=== PATIENT | male | born 1970 | race Caucasian/White ===

== ENCOUNTER 2018-12-18 11:54 | Inpatient (IN) | payer MEDICAID, OTHER ==
[~2018-12-18] VITALS: Ht 195.6 cm; Wt 101.3 kg
[~2018-12-18 11:54] MED LIST: DULO20CA30 PO; OLAN10TA3 PO
[2018-12-18] MEDS ORDERED: SODIUM CHLORIDE 0.9% 1,000 ML IV ONE (12:15)
[2018-12-18] MEDS ORDERED: METH10 PO (12:29)
[2018-12-18] MEDS ORDERED: SUCR1TAB PO (12:29)
[2018-12-18] MEDS ORDERED: DIVA500T52 PO (12:29)
[2018-12-18] MEDS ORDERED: PANT40TA25 PO (12:29)
[2018-12-18 12:41] LABS: BASOPHILS % (AUTO) 0.4 % (0.0-2.0); EOSINOPHILS % (AUTO) 3.9 % (1.0-6.0); HEMATOCRIT 33.4 % (41-53); HEMOGLOBIN 11.1 g/dL (13.5-17.5); LYMPHOCYTES # (AUTO) 2.2 K/uL (1.0-4.8); MEAN CORPUSCULAR HEMOGLOBIN 29.8 pg (26.0-34.0); MEAN CORPUSCULAR HGB CONC 33.2 G/dL (31.0-37.0); MEAN CORPUSCULAR VOLUME 90 fL (80-100); MONOCYTES # (AUTO) 0.8 K/uL (0.1-1.0); MONOCYTES % (AUTO) 14.6 % (2.0-9.0); NEUTROPHILS # (AUTO) 2.4 K/uL (1.8-7.7); NEUTROPHILS % (AUTO) 42.1 % (40.0-70.0); PLATELET COUNT (AUTO) 220 K/uL (150-450); RED BLOOD CELL COUNT(AUTO) 3.73 MIL/uL (4.50-5.90); RED CELL DISTRIBUTION WIDTH 14.9 % (11.5-14.5)
[2018-12-18 12:51] LABS: ANION GAP 5 mmol/L (8-16); CALCIUM, TOTAL 8.6 mg/dL (8.8-10.5); CARBON DIOXIDE 29 mmol/L (22-29); CHLORIDE 105 mmol/L (98-107); CREATININE 0.91 mg/dL (0.60-1.30); GLOMERULAR FILTR. RATE CALC > 60 mL/min (>60); GLUCOSE,RANDOM 88 mg/dL (70-110); POTASSIUM 3.8 mmol/L (3.5-5.1); SODIUM SERUM 139 mmol/L (136-145); UREA NITROGEN, BLOOD 20 mg/dL (7-18)
[2018-12-18 13:03] LABS: AMPHET/METH SCREEN,URINE NEGATIVE (NEGATIVE); BARBITURATE SCREEN, URINE NEGATIVE (NEGATIVE); BENZODIAZEPINES SCREEN,URINE NEGATIVE (NEGATIVE); CANNABINOID SCREEN,URINE NEGATIVE (NEGATIVE); COCAINE SCREEN,URINE NEGATIVE (NEGATIVE); METHADONE SCREEN, URINE POSITIVE (NEGATIVE); OPIATE SCREEN,URINE NEGATIVE (NEGATIVE)
[2018-12-18 13:04] LABS: PHENCYCLIDINE SCREEN,URINE NEGATIVE (NEGATIVE)
[2018-12-18] MEDS ORDERED: NALOXONE HCL 1 MG/ML 2 ML SYG IVP ONE (13:15)
[2018-12-18 13:18] LABS: ALANINE AMINOTRANSFERASE 49 U/L (12-78); ALKALINE PHOSPHATASE 63 U/L (46-116); ASPARTATE AMINOTRANSFERASE 62 U/L (15-37); BILIRUBIN,TOTAL 0.2 mg/dL (0.1-1.0); TOTAL PROTEIN, SERUM 6.7 g/dL (6.4-8.2)
[2018-12-18 13:19] LABS: ACETAMINOPHEN < 2 mcg/mL (10-30)
[2018-12-18 13:32] LABS: SALICYLATE 1.2 mg/dL (2.8-20.0)
[2018-12-18 13:51] LABS: VALPROIC ACID 35 mcg/mL (50-100)
[2018-12-18] MEDS ORDERED: ACETAMINOPHEN 325 MG TABLET PO PRN (19:00)
[2018-12-18] MEDS ORDERED: ONDANSETRON HCL 4 MG/2 ML VIAL IVP PRN ×2 (19:00→20:30)
[2018-12-18] MEDS ORDERED: 0.9% SODIUM CHLORIDE 10 ML SYRINGE IVP PRN (19:00)
[2018-12-18 20:26] VITALS: BP 116/60
[2018-12-18] MEDS ORDERED: MAGNESIUM HYDROXIDE SUSPENSION 30 ML UDCUP PO PRN (20:30)
[2018-12-18] MEDS ORDERED: MAGNESIUM SULFATE 2 GM, MVI, ADULT NO.1 WITH VIT K 10 ML, THIAMINE HCL 100 MG, FOLIC AC... IV ONE ×5 (20:30)
[2018-12-18] MEDS ORDERED: ZOLPIDEM TARTRATE 5 MG TABLET PO PRN (20:30)
[2018-12-18] MEDS ORDERED: BISACODYL 10 MG RECTAL RECTAL SUPPOSITORY PR PRN (20:30)
[2018-12-18] MEDS: DOCUSATE SODIUM 100 MG CAPSULE PO SCH (23:41)
[2018-12-18] MEDS: HEPARIN SODIUM,PORCINE 5,000 UNITS/ML VIAL SQ SCH (23:41)
[2018-12-19 00:05] VITALS: BP 122/70
[2018-12-19 05:00] VITALS: BP 128/83
[2018-12-19] MEDS ORDERED: PNEUMOCOCCAL VACCINE POLYVALENT 0.5 ML VIAL [PPSV23] IM ONE (06:30)
[2018-12-19 06:46] LABS: BASOPHILS % (AUTO) 0.6 % (0.0-2.0); EOSINOPHILS % (AUTO) 4.4 % (1.0-6.0); HEMATOCRIT 34.2 % (41-53); HEMOGLOBIN 11.6 g/dL (13.5-17.5); LYMPHOCYTES # (AUTO) 1.6 K/uL (1.0-4.8); LYMPHOCYTES % (AUTO) 43.4 % (22.0-44.0); MEAN CORPUSCULAR HEMOGLOBIN 30.2 pg (26.0-34.0); MEAN CORPUSCULAR HGB CONC 33.9 G/dL (31.0-37.0); MEAN CORPUSCULAR VOLUME 89 fL (80-100); MONOCYTES # (AUTO) 0.6 K/uL (0.1-1.0); MONOCYTES % (AUTO) 15.8 % (2.0-9.0); NEUTROPHILS # (AUTO) 1.4 K/uL (1.8-7.7); NEUTROPHILS % (AUTO) 35.8 % (40.0-70.0); PLATELET COUNT (AUTO) 225 K/uL (150-450); RED BLOOD CELL COUNT(AUTO) 3.84 MIL/uL (4.50-5.90); RED CELL DISTRIBUTION WIDTH 15.1 % (11.5-14.5)
[2018-12-19 07:03] LABS: ALANINE AMINOTRANSFERASE 51 U/L (12-78); ALBUMIN 2.9 g/dL (3.4-5.0); ALKALINE PHOSPHATASE 59 U/L (46-116); ANION GAP 5 mmol/L (8-16); ASPARTATE AMINOTRANSFERASE 49 U/L (15-37); BILIRUBIN,TOTAL 0.2 mg/dL (0.1-1.0); CALCIUM, TOTAL 8.9 mg/dL (8.8-10.5); CARBON DIOXIDE 32 mmol/L (22-29); CHLORIDE 104 mmol/L (98-107); CREATININE 0.93 mg/dL (0.60-1.30); GLOMERULAR FILTR. RATE CALC > 60 mL/min (>60); GLUCOSE,RANDOM 98 mg/dL (70-110); POTASSIUM 4.3 mmol/L (3.5-5.1); SODIUM SERUM 141 mmol/L (136-145); TOTAL PROTEIN, SERUM 6.7 g/dL (6.4-8.2); UREA NITROGEN, BLOOD 16 mg/dL (7-18)
[2018-12-19] MEDS: LORazepam 1 MG TABLET PO PRN ×3 (07:14→23:14)
[2018-12-19 07:55] VITALS: BP 127/75
[2018-12-19] MEDS: HEPARIN SODIUM,PORCINE 5,000 UNITS/ML VIAL SQ SCH ×3 (08:00→23:14)
[2018-12-19] MEDS: DOCUSATE SODIUM 100 MG CAPSULE PO SCH ×2 (09:00→20:44)
[2018-12-19] MEDS ORDERED: METHADONE HCL 10 MG TABLET PO SCH (09:00)
[2018-12-19] MEDS: PANTOPRAZOLE SODIUM 40 MG DR TABLET PO SCH (09:16)
[2018-12-19] MEDS: METHADONE HCL 10 MG TABLET PO SCH (10:13)
[2018-12-19 11:57] VITALS: BP 108/75
[2018-12-19 20:04] VITALS: BP 109/67
[2018-12-19] MEDS: ACETAMINOPHEN 325 MG TABLET PO PRN (21:39)
[2018-12-19] MEDS: CALCIUM CARBONATE 500 MG CHEWABLE TABLET CHEW PRN (23:14)
[2018-12-20 00:14] VITALS: BP 115/62
[2018-12-20 04:21] VITALS: BP 114/73
[2018-12-20 06:41] LABS: BASOPHILS % (AUTO) 0.2 % (0.0-2.0); EOSINOPHILS % (AUTO) 1.6 % (1.0-6.0); LYMPHOCYTES # (AUTO) 1.8 K/uL (1.0-4.8); LYMPHOCYTES % (AUTO) 18.8 % (22.0-44.0); MEAN CORPUSCULAR HEMOGLOBIN 29.1 pg (26.0-34.0); MEAN CORPUSCULAR HGB CONC 32.4 G/dL (31.0-37.0); MEAN CORPUSCULAR VOLUME 90 fL (80-100); MONOCYTES # (AUTO) 0.9 K/uL (0.1-1.0); MONOCYTES % (AUTO) 9.2 % (2.0-9.0); NEUTROPHILS # (AUTO) 6.9 K/uL (1.8-7.7); NEUTROPHILS % (AUTO) 70.2 % (40.0-70.0); PLATELET COUNT (AUTO) 248 K/uL (150-450); RED BLOOD CELL COUNT(AUTO) 4.11 MIL/uL (4.50-5.90); RED CELL DISTRIBUTION WIDTH 14.5 % (11.5-14.5)
[2018-12-20 06:46] LABS: ANION GAP 7 mmol/L (8-16); CALCIUM, TOTAL 9.5 mg/dL (8.8-10.5); CARBON DIOXIDE 33 mmol/L (22-29); CHLORIDE 100 mmol/L (98-107); CREATININE 0.92 mg/dL (0.60-1.30); GLOMERULAR FILTR. RATE CALC > 60 mL/min (>60); GLUCOSE,RANDOM 88 mg/dL (70-110); POTASSIUM 4.8 mmol/L (3.5-5.1); SODIUM SERUM 140 mmol/L (136-145); UREA NITROGEN, BLOOD 19 mg/dL (7-18)
[2018-12-20] MEDS: LORazepam 1 MG TABLET PO PRN ×3 (07:44→23:25)
[2018-12-20 08:04] VITALS: BP 136/85
[2018-12-20] MEDS: DOCUSATE SODIUM 100 MG CAPSULE PO SCH ×2 (08:56→19:56)
[2018-12-20] MEDS: METHADONE HCL 10 MG TABLET PO SCH (08:56)
[2018-12-20] MEDS: PANTOPRAZOLE SODIUM 40 MG DR TABLET PO SCH (08:56)
[2018-12-20] MEDS: HEPARIN SODIUM,PORCINE 5,000 UNITS/ML VIAL SQ SCH ×3 (08:56→23:42)
[2018-12-20 11:40] VITALS: BP 119/83
[2018-12-20] MEDS: ACETAMINOPHEN 325 MG TABLET PO PRN (11:52)
[2018-12-20 16:00] VITALS: BP 128/85
[2018-12-20] MEDS ORDERED: OLANZapine 10 MG TABLET PO SCH (21:00)
[2018-12-20] MEDS: CALCIUM CARBONATE 500 MG CHEWABLE TABLET CHEW PRN (22:52)
[2018-12-20 22:54] VITALS: BP 135/86
[2018-12-21 04:15] VITALS: BP 112/78
[2018-12-21 07:49] VITALS: BP 147/91
[2018-12-21] MEDS: HEPARIN SODIUM,PORCINE 5,000 UNITS/ML VIAL SQ SCH (07:52)
[2018-12-21] MEDS: CALCIUM CARBONATE 500 MG CHEWABLE TABLET CHEW PRN (07:56)
[2018-12-21] MEDS: METHADONE HCL 10 MG TABLET PO SCH (07:56)
[2018-12-21] MEDS: PANTOPRAZOLE SODIUM 40 MG DR TABLET PO SCH (07:56)
[2018-12-21] MEDS: LORazepam 1 MG TABLET PO PRN (07:57)
[2018-12-21] MEDS: DOCUSATE SODIUM 100 MG CAPSULE PO SCH (07:57)
[2018-12-21] MEDS ORDERED: METH10 PO (08:41)
== END 2018-12-21 09:45 | disposition home or self-care (01) | DRG 52 ==
LOC: EMS 11:55 → 4E 19:30 → 5S 19:38 → 4E 12-20 16:20
PROVIDERS: ADMIT Internal Medicine; ATTEND Internal Medicine
DX: G92 Toxic encephalopathy (principal); F11.20 Opioid dependence, uncomplicated; K21.9 Gastro-esophageal reflux disease without esophagitis; F17.210 Nicotine dependence, cigarettes, uncomplicated; F31.5 Bipolar disorder, current episode depressed, severe, with psychotic features; T40.3X5A Adverse effect of methadone, initial encounter; Z88.2 Allergy status to sulfonamides; Z79.899 Other long term (current) drug therapy; Y92.89 Other specified places as the place of occurrence of the external cause; Z78.1 Physical restraint status
CPT/HCPCS: 51702; 70450; 93005; 96365; 96375; G0378; G0480; G0481; J1644; J2310; J2405; J3411; J3475; J3490; J7030

== ENCOUNTER 2019-01-06 13:49 | Inpatient (IN) | payer MEDICAID, OTHER ==
[~2019-01-06] VITALS: Ht 188 cm; Wt 95.7 kg
[~2019-01-06 13:49] MED LIST changes: +DIVA500T52 PO; -DULO20CA30 PO; +METH10 PO; +PANT40TA25 PO; +SUCR1TAB PO
[2019-01-06 15:44] LABS: EOSINOPHILS % (AUTO) 3.7 % (1.0-6.0); HEMATOCRIT 33.9 % (41-53); HEMOGLOBIN 11.1 g/dL (13.5-17.5); LYMPHOCYTES # (AUTO) 1.7 K/uL (1.0-4.8); LYMPHOCYTES % (AUTO) 35.9 % (22.0-44.0); MEAN CORPUSCULAR HEMOGLOBIN 29.2 pg (26.0-34.0); MEAN CORPUSCULAR HGB CONC 32.6 G/dL (31.0-37.0); MEAN CORPUSCULAR VOLUME 90 fL (80-100); MONOCYTES # (AUTO) 0.6 K/uL (0.1-1.0); MONOCYTES % (AUTO) 12.6 % (2.0-9.0); NEUTROPHILS # (AUTO) 2.2 K/uL (1.8-7.7); NEUTROPHILS % (AUTO) 46.8 % (40.0-70.0); PLATELET COUNT (AUTO) 308 K/uL (150-450); RED BLOOD CELL COUNT(AUTO) 3.79 MIL/uL (4.50-5.90); RED CELL DISTRIBUTION WIDTH 14.9 % (11.5-14.5)
[2019-01-06 15:50] LABS: PROTHROMBIN TIME 10.7 SEC (9.4-11.6)
[2019-01-06 15:55] LABS: ANION GAP 10 mmol/L (8-16); CALCIUM, TOTAL 9.3 mg/dL (8.8-10.5); CARBON DIOXIDE 29 mmol/L (22-29); CHLORIDE 101 mmol/L (98-107); CREATININE 0.91 mg/dL (0.60-1.30); GLOMERULAR FILTR. RATE CALC > 60 mL/min (>60); GLUCOSE,RANDOM 78 mg/dL (70-110); POTASSIUM 3.1 mmol/L (3.5-5.1); SODIUM SERUM 140 mmol/L (136-145); UREA NITROGEN, BLOOD 12 mg/dL (7-18)
[2019-01-06 15:56] LABS: SALICYLATE < 2.8 mg/dL (2.8-20.0)
[2019-01-06 16:01] LABS: ALANINE AMINOTRANSFERASE 29 U/L (12-78); ALKALINE PHOSPHATASE 55 U/L (46-116); ASPARTATE AMINOTRANSFERASE 25 U/L (15-37); BILIRUBIN,TOTAL 0.5 mg/dL (0.1-1.0); LIPASE 31 U/L (73-393); TOTAL PROTEIN, SERUM 6.8 g/dL (6.4-8.2); VALPROIC ACID 5 mcg/mL (50-100)
[2019-01-06 16:03] LABS: ACETAMINOPHEN < 2 mcg/mL (10-30)
[2019-01-06] MEDS ORDERED: POTASSIUM CHLORIDE 10% 40 MEQ/30 ML LIQUID UDCUP PO ONE (16:30)
[2019-01-07 03:00] LABS: APPEARANCE,URINE CLEAR (CLEAR); BILIRUBIN,URINE NEGATIVE (NEGATIVE); GLUCOSE, URINE (UA) NEGATIVE (NEGATIVE); KETONES,URINE 15 mg/dL (NEGATIVE); LEUKOCYTE ESTERASE ,URINE NEGATIVE (NEGATIVE); NITRATE,URINE NEGATIVE (NEGATIVE); OCCULT BLOOD,URINE NEGATIVE (NEGATIVE); PROTEIN,URINE NEGATIVE (NEGATIVE)
[2019-01-07 03:05] LABS: AMPHET/METH SCREEN,URINE POSITIVE (NEGATIVE); BARBITURATE SCREEN, URINE NEGATIVE (NEGATIVE); BENZODIAZEPINES SCREEN,URINE POSITIVE (NEGATIVE); CANNABINOID SCREEN,URINE NEGATIVE (NEGATIVE); COCAINE SCREEN,URINE NEGATIVE (NEGATIVE); METHADONE SCREEN, URINE POSITIVE (NEGATIVE); OPIATE SCREEN,URINE NEGATIVE (NEGATIVE)
[2019-01-07 03:06] LABS: BACTERIA,URINE None Seen /HPF (None Seen); RBC,URINE None Seen /HPF (0-2); SQUAMOUS EPITHELIAL CELL,UR Rare /LPF (None Seen); WBC,URINE 0-2 /HPF (0-5)
[2019-01-07 03:07] LABS: PHENCYCLIDINE SCREEN,URINE NEGATIVE (NEGATIVE)
[2019-01-07] MEDS ORDERED: HALOPERIDOL 5 MG TABLET PO PRN (03:30)
[2019-01-07 03:44] VITALS: BP 111/52
[2019-01-07 08:05] VITALS: BP 100/57
[2019-01-07] MEDS ORDERED: MAGNESIUM HYDROXIDE SUSPENSION 30 ML UDCUP PO PRN (10:00)
[2019-01-07] MEDS ORDERED: ACETAMINOPHEN 325 MG TABLET PO PRN (10:00)
[2019-01-07] MEDS ORDERED: DOCUSATE SODIUM 100 MG CAPSULE PO PRN (10:00)
[2019-01-07] MEDS ORDERED: ONDANSETRON HCL 4 MG TABLET PO PRN (10:00)
[2019-01-07] MEDS ORDERED: NICOTINE 14 MG/24 HOUR PATCH TD PRN (10:00)
[2019-01-07] MEDS ORDERED: GuaiFENesin/D-METHORPHAN [SUGAR-FREE] 200-20MG/10 ML SYRUP UDCUP PO PRN (10:00)
[2019-01-07] MEDS ORDERED: LOPERAMIDE HCL 2 MG CAPSULE PO PRN (10:00)
[2019-01-07] MEDS ORDERED: CloNIDine HCL 0.1 MG TABLET PO PRN (10:00)
[2019-01-07] MEDS ORDERED: PETROLATUM,WHITE 28 GM JELLY TP PRN (10:00)
[2019-01-07] MEDS ORDERED: ALBUTEROL SULFATE HFA 90 MCG/PUFF 8 GM INHALER IH PRN (10:00)
[2019-01-07] MEDS: SUCRALFATE 1 GM TABLET PO SCH (16:39)
[2019-01-07 17:19] VITALS: BP 107/60
[2019-01-07] MEDS: LORazepam 2 MG TABLET PO PRN (17:42)
[2019-01-07] MEDS: OLANZapine 10 MG TABLET PO SCH (21:13)
[2019-01-07] MEDS: DIVALPROEX SODIUM 500 MG ER TABLET PO SCH (21:13)
[2019-01-08 08:30] VITALS: BP 96/52
[2019-01-08 09:30] VITALS: BP 151/103
[2019-01-08] MEDS: SUCRALFATE 1 GM TABLET PO SCH ×2 (09:34→17:38)
[2019-01-08] MEDS: METHADONE HCL 10 MG TABLET PO SCH (09:35)
[2019-01-08] MEDS: LORazepam 2 MG TABLET PO PRN ×2 (11:07→19:06)
[2019-01-08 17:07] VITALS: BP 93/54
[2019-01-08 19:05] VITALS: BP 109/72
[2019-01-08] MEDS: DIVALPROEX SODIUM 500 MG ER TABLET PO SCH (21:05)
[2019-01-08] MEDS: OLANZapine 10 MG TABLET PO SCH (21:05)
[2019-01-09 08:00] VITALS: BP 100/68
[2019-01-09] MEDS: METHADONE HCL 10 MG TABLET PO SCH (09:33)
[2019-01-09] MEDS: SUCRALFATE 1 GM TABLET PO SCH ×2 (09:34→16:42)
[2019-01-09] MEDS: LORazepam 2 MG TABLET PO PRN ×3 (10:15→22:14)
[2019-01-09 16:20] VITALS: BP 118/73
[2019-01-09] MEDS: DIVALPROEX SODIUM 500 MG ER TABLET PO SCH (21:27)
[2019-01-09] MEDS: OLANZapine 10 MG TABLET PO SCH (21:27)
[2019-01-10 00:40] VITALS: BP 100/79
[2019-01-10] MEDS: ZOLPIDEM TARTRATE 10 MG TABLET PO PRN (01:56)
[2019-01-10] MEDS: MAG HYDROX/AL HYDROX/SIMETH ES 30 ML SUSPENSION UDCUP PO PRN (01:56)
[2019-01-10] MEDS: LORazepam 2 MG TABLET PO PRN ×3 (08:44→20:31)
[2019-01-10 09:15] VITALS: BP 120/74
[2019-01-10] MEDS: SUCRALFATE 1 GM TABLET PO SCH ×2 (10:24→16:43)
[2019-01-10] MEDS: METHADONE HCL 10 MG TABLET PO SCH (10:24)
[2019-01-10 18:20] VITALS: BP 111/65
[2019-01-10] MEDS: DIVALPROEX SODIUM 500 MG ER TABLET PO SCH (20:31)
[2019-01-10] MEDS: OLANZapine 10 MG TABLET PO SCH (20:31)
[2019-01-11 00:20] VITALS: BP 120/78
[2019-01-11] MEDS: IBUPROFEN 400 MG TABLET PO PRN (00:23)
[2019-01-11] MEDS: MAG HYDROX/AL HYDROX/SIMETH ES 30 ML SUSPENSION UDCUP PO PRN (00:23)
[2019-01-11 03:07] VITALS: BP 118/91
[2019-01-11] MEDS: ZOLPIDEM TARTRATE 10 MG TABLET PO PRN ×2 (03:10→20:40)
[2019-01-11] MEDS: LORazepam 2 MG TABLET PO PRN ×3 (03:10→16:09)
[2019-01-11 08:00] VITALS: BP 90/60
[2019-01-11] MEDS: SUCRALFATE 1 GM TABLET PO SCH ×2 (08:55→16:10)
[2019-01-11] MEDS: METHADONE HCL 10 MG TABLET PO SCH (08:56)
[2019-01-11] MEDS ORDERED: LORazepam 2 MG/ML VIAL IM ONE (16:30)
[2019-01-11] MEDS ORDERED: HALOPERIDOL LACTATE 5 MG/ML VIAL IM ONE (16:30)
[2019-01-11] MEDS ORDERED: DiphenhydrAMINE HCL 50 MG/ML VIAL IM ONE (16:30)
[2019-01-11 16:41] VITALS: BP 117/80
[2019-01-11] MEDS: DIVALPROEX SODIUM 500 MG ER TABLET PO SCH (20:11)
[2019-01-11] MEDS: OLANZapine 10 MG TABLET PO SCH (20:12)
[2019-01-12 08:12] VITALS: BP 127/80
[2019-01-12] MEDS: SUCRALFATE 1 GM TABLET PO SCH ×2 (09:44→16:06)
[2019-01-12] MEDS: METHADONE HCL 10 MG TABLET PO SCH (09:45)
[2019-01-12] MEDS: LORazepam 2 MG TABLET PO PRN ×2 (13:41→21:02)
[2019-01-12] MEDS: OLANZapine 10 MG TABLET PO SCH (21:02)
[2019-01-12] MEDS: DIVALPROEX SODIUM 500 MG ER TABLET PO SCH (21:02)
[2019-01-13] MEDS: METHADONE HCL 10 MG TABLET PO SCH (07:41)
[2019-01-13] MEDS: SUCRALFATE 1 GM TABLET PO SCH ×2 (07:41→16:06)
[2019-01-13 08:01] VITALS: BP 105/83
[2019-01-13] MEDS: LORazepam 2 MG TABLET PO PRN ×3 (10:15→21:22)
[2019-01-13] MEDS: MAG HYDROX/AL HYDROX/SIMETH ES 30 ML SUSPENSION UDCUP PO PRN (16:00)
[2019-01-13 20:03] VITALS: BP 117/69
[2019-01-13] MEDS: DIVALPROEX SODIUM 500 MG ER TABLET PO SCH (20:57)
[2019-01-13] MEDS: OLANZapine 10 MG TABLET PO SCH (20:57)
[2019-01-14 08:00] VITALS: BP 105/75
[2019-01-14] MEDS: METHADONE HCL 10 MG TABLET PO SCH (08:31)
[2019-01-14] MEDS: SUCRALFATE 1 GM TABLET PO SCH ×2 (08:31→16:20)
[2019-01-14] MEDS: LORazepam 2 MG TABLET PO PRN ×2 (10:37→16:20)
[2019-01-14 16:24] VITALS: BP 114/60
[2019-01-14] MEDS: DIVALPROEX SODIUM 500 MG ER TABLET PO SCH (19:55)
[2019-01-14] MEDS: OLANZapine 10 MG TABLET PO SCH (19:55)
[2019-01-15 01:15] VITALS: BP 112/80
[2019-01-15] MEDS: LORazepam 2 MG TABLET PO PRN ×5 (01:20→23:53)
[2019-01-15] MEDS: ZOLPIDEM TARTRATE 10 MG TABLET PO PRN ×2 (01:20→23:53)
[2019-01-15 08:00] VITALS: BP 121/68
[2019-01-15] MEDS: SUCRALFATE 1 GM TABLET PO SCH ×2 (08:12→16:11)
[2019-01-15] MEDS: METHADONE HCL 10 MG TABLET PO SCH (08:14)
[2019-01-15 16:00] VITALS: BP 106/70
[2019-01-15] MEDS: OLANZapine 10 MG TABLET PO SCH (20:45)
[2019-01-15] MEDS: DIVALPROEX SODIUM 500 MG ER TABLET PO SCH (20:45)
[2019-01-16 08:30] VITALS: BP 107/62
[2019-01-16] MEDS: METHADONE HCL 10 MG TABLET PO SCH (09:35)
[2019-01-16] MEDS: LORazepam 2 MG TABLET PO PRN (09:35)
[2019-01-16] MEDS: SUCRALFATE 1 GM TABLET PO SCH ×2 (09:35→21:03)
[2019-01-16 19:28] VITALS: BP 129/90
[2019-01-16] MEDS: DIVALPROEX SODIUM 500 MG ER TABLET PO SCH (21:03)
[2019-01-16] MEDS: ZOLPIDEM TARTRATE 10 MG TABLET PO PRN (21:03)
[2019-01-16] MEDS: OLANZapine 10 MG TABLET PO SCH (21:03)
[2019-01-17] MEDS: LEVOFLOXACIN 500 MG TABLET PO SCH (09:00)
[2019-01-17] MEDS: METHADONE HCL 10 MG TABLET PO SCH (09:31)
[2019-01-17] MEDS: SUCRALFATE 1 GM TABLET PO SCH ×2 (09:31→16:27)
[2019-01-17] MEDS: LORazepam 2 MG TABLET PO PRN ×3 (09:31→20:17)
[2019-01-17 12:32] VITALS: BP 134/76
[2019-01-17] MEDS: IBUPROFEN 400 MG TABLET PO PRN (16:27)
[2019-01-17 16:28] VITALS: BP 102/62
[2019-01-17] MEDS: OLANZapine 10 MG TABLET PO SCH (20:10)
[2019-01-17] MEDS: DIVALPROEX SODIUM 500 MG ER TABLET PO SCH (20:10)
[2019-01-18] MEDS: SUCRALFATE 1 GM TABLET PO SCH ×2 (08:37→16:37)
[2019-01-18] MEDS: LEVOFLOXACIN 500 MG TABLET PO SCH (08:37)
[2019-01-18] MEDS: LORazepam 2 MG TABLET PO PRN ×2 (08:37→16:37)
[2019-01-18] MEDS: METHADONE HCL 10 MG TABLET PO SCH (08:37)
[2019-01-18 08:56] VITALS: BP 106/69
[2019-01-18 17:04] VITALS: BP 110/76
[2019-01-18] MEDS: OLANZapine 10 MG TABLET PO SCH (20:01)
[2019-01-18] MEDS: DIVALPROEX SODIUM 500 MG ER TABLET PO SCH (20:01)
[2019-01-18] MEDS: ZOLPIDEM TARTRATE 10 MG TABLET PO PRN (23:40)
[2019-01-19] MEDS: SUCRALFATE 1 GM TABLET PO SCH ×2 (08:32→16:40)
[2019-01-19] MEDS: LORazepam 2 MG TABLET PO PRN ×3 (08:32→21:58)
[2019-01-19] MEDS: METHADONE HCL 10 MG TABLET PO SCH (08:32)
[2019-01-19] MEDS: LEVOFLOXACIN 500 MG TABLET PO SCH (08:32)
[2019-01-19 09:12] VITALS: BP 134/87
[2019-01-19 16:30] VITALS: BP 124/78
[2019-01-19] MEDS: OLANZapine 10 MG TABLET PO SCH (20:24)
[2019-01-19] MEDS: DIVALPROEX SODIUM 500 MG ER TABLET PO SCH (20:24)
[2019-01-20 00:06] VITALS: BP 107/73
[2019-01-20] MEDS: MAG HYDROX/AL HYDROX/SIMETH ES 30 ML SUSPENSION UDCUP PO PRN ×2 (00:10→16:14)
[2019-01-20] MEDS: SUCRALFATE 1 GM TABLET PO SCH ×2 (08:17→16:12)
[2019-01-20] MEDS: METHADONE HCL 10 MG TABLET PO SCH (08:18)
[2019-01-20] MEDS: LORazepam 2 MG TABLET PO PRN ×2 (08:18→16:14)
[2019-01-20] MEDS: LEVOFLOXACIN 500 MG TABLET PO SCH (08:18)
[2019-01-20 09:51] VITALS: BP 108/79
[2019-01-20] MEDS ORDERED: OLAN10TA3 PO (12:31)
[2019-01-20] MEDS ORDERED: LEVO500 PO (12:45)
[2019-01-20 16:28] VITALS: BP 120/81
== END 2019-01-20 18:50 | disposition home or self-care (01) | DRG 750 ==
LOC: EMS 13:50 → 3EI 01-07 02:58 → 3EC 01-11 16:54 → 3EI 01-19 08:24
PROVIDERS: ADMIT Psychiatry & Neurology Child & Adolescent Psychiatry; ATTEND Psychiatry & Neurology Child & Adolescent Psychiatry
DX: F25.1 Schizoaffective disorder, depressive type (principal); R45.851 Suicidal ideations; Z59.0 Homelessness; D64.9 Anemia, unspecified; E87.6 Hypokalemia; F11.90 Opioid use, unspecified, uncomplicated; F17.200 Nicotine dependence, unspecified, uncomplicated; G89.4 Chronic pain syndrome; F15.10 Other stimulant abuse, uncomplicated; I10 Essential (primary) hypertension; F41.9 Anxiety disorder, unspecified; L02.92 Furuncle, unspecified; I73.9 Peripheral vascular disease, unspecified; K21.9 Gastro-esophageal reflux disease without esophagitis; Z59.5 Extreme poverty; Z79.899 Other long term (current) drug therapy; Z95.0 Presence of cardiac pacemaker; Z91.5 Personal history of self-harm; Z71.6 Tobacco abuse counseling; Z88.2 Allergy status to sulfonamides
CPT/HCPCS: 84132; 87081; G0480; G0481; J1200; J1630; J2060

== ENCOUNTER 2019-05-28 15:11 | Inpatient (IN) | payer MEDICAID, OTHER ==
[~2019-05-28] VITALS: Ht 188 cm; Wt 99.8 kg
[~2019-05-28 15:11] MED LIST changes: +LEVO500 PO; -METH10 PO; -PANT40TA25 PO
[2019-05-28 17:46] LABS: BASOPHILS % (AUTO) 0.9 % (0.0-2.0); HEMATOCRIT 40.9 % (41-53); HEMOGLOBIN 13.8 g/dL (13.5-17.5); LYMPHOCYTES # (AUTO) 2.5 K/uL (1.0-4.8); MEAN CORPUSCULAR HEMOGLOBIN 29.6 pg (26.0-34.0); MEAN CORPUSCULAR HGB CONC 33.7 G/dL (31.0-37.0); MEAN CORPUSCULAR VOLUME 88 fL (80-100); MONOCYTES # (AUTO) 0.6 K/uL (0.1-1.0); MONOCYTES % (AUTO) 8.5 % (2.0-9.0); NEUTROPHILS # (AUTO) 4.2 K/uL (1.8-7.7); NEUTROPHILS % (AUTO) 55.6 % (40.0-70.0); PLATELET COUNT (AUTO) 301 K/uL (150-450); RED BLOOD CELL COUNT(AUTO) 4.66 MIL/uL (4.50-5.90); RED CELL DISTRIBUTION WIDTH 15.4 % (11.5-14.5)
[2019-05-28 17:53] LABS: ANION GAP 8 mmol/L (8-16); CALCIUM, TOTAL 9.2 mg/dL (8.8-10.5); CARBON DIOXIDE 29 mmol/L (22-29); CHLORIDE 101 mmol/L (98-107); CREATININE 0.81 mg/dL (0.60-1.30); GLOMERULAR FILTR. RATE CALC > 60 mL/min (>60); GLUCOSE,RANDOM 92 mg/dL (70-110); POTASSIUM 4.3 mmol/L (3.5-5.1); SODIUM SERUM 138 mmol/L (136-145)
[2019-05-28 17:59] LABS: ALANINE AMINOTRANSFERASE 28 U/L (12-78); ALBUMIN 3.8 g/dL (3.4-5.0); ALKALINE PHOSPHATASE 121 U/L (46-116); ASPARTATE AMINOTRANSFERASE 20 U/L (15-37); BILIRUBIN,TOTAL 0.4 mg/dL (0.1-1.0); TOTAL PROTEIN, SERUM 7.7 g/dL (6.4-8.2)
[2019-05-28 18:32] LABS: UREA NITROGEN, BLOOD 9 mg/dL (7-18)
[2019-05-28 18:33] LABS: AMPHET/METH SCREEN,URINE POSITIVE (NEGATIVE); BARBITURATE SCREEN, URINE NEGATIVE (NEGATIVE); BENZODIAZEPINES SCREEN,URINE NEGATIVE (NEGATIVE); CANNABINOID SCREEN,URINE NEGATIVE (NEGATIVE); COCAINE SCREEN,URINE NEGATIVE (NEGATIVE); METHADONE SCREEN, URINE POSITIVE (NEGATIVE); OPIATE SCREEN,URINE NEGATIVE (NEGATIVE)
[2019-05-28] MEDS ORDERED: LORazepam 2 MG TABLET PO ONE (18:45)
[2019-05-28 19:02] LABS: PHENCYCLIDINE SCREEN,URINE NEGATIVE (NEGATIVE)
[2019-05-28 20:47] LABS: VALPROIC ACID < 3 mcg/mL (50-100)
[2019-05-28] MEDS ORDERED: OLANZapine 5 MG TABLET PO ONE (22:45)
[2019-05-28] MEDS ORDERED: DIVALPROEX SODIUM 500 MG ER TABLET PO ONE (22:45)
[2019-05-29] MEDS: HALOPERIDOL 5 MG TABLET PO PRN ×2 (02:13→17:36)
[2019-05-29] MEDS: LORazepam 2 MG TABLET PO PRN ×2 (02:14→17:36)
[2019-05-29 04:15] VITALS: BP 132/92
[2019-05-29] MEDS ORDERED: INFLUENZA VIRUS VACCINE QVS 2019-20 (3YR+)/PF 60 MCG/0.5 ML SYRINGE IM ONE (04:45)
[2019-05-29 08:06] LABS: CHOL/HDL RATIO 1.8 (4.2-7.3)
[2019-05-29] MEDS ORDERED: ONDANSETRON HCL 4 MG TABLET PO PRN (14:15)
[2019-05-29] MEDS ORDERED: NICOTINE 14 MG/24 HOUR PATCH TD PRN (14:15)
[2019-05-29] MEDS ORDERED: DOCUSATE SODIUM 100 MG CAPSULE PO PRN (14:15)
[2019-05-29] MEDS ORDERED: CloNIDine HCL 0.1 MG TABLET PO PRN (14:15)
[2019-05-29] MEDS ORDERED: ALBUTEROL SULFATE HFA 90 MCG/PUFF 8 GM INHALER IH PRN (14:15)
[2019-05-29] MEDS ORDERED: LOPERAMIDE HCL 2 MG CAPSULE PO PRN (14:15)
[2019-05-29] MEDS ORDERED: ACETAMINOPHEN 325 MG TABLET PO PRN (14:15)
[2019-05-29] MEDS ORDERED: MAGNESIUM HYDROXIDE SUSPENSION 30 ML UDCUP PO PRN (14:15)
[2019-05-29] MEDS ORDERED: PETROLATUM,WHITE 28 GM JELLY TP PRN (14:15)
[2019-05-29] MEDS ORDERED: MAG HYDROX/AL HYDROX/SIMETH ES 30 ML SUSPENSION UDCUP PO PRN (14:15)
[2019-05-29] MEDS ORDERED: IBUPROFEN 400 MG TABLET PO PRN (14:15)
[2019-05-29] MEDS ORDERED: GuaiFENesin/D-METHORPHAN [SUGAR-FREE] 200-20MG/10 ML SYRUP UDCUP PO PRN (14:15)
[2019-05-29] MEDS: SUCRALFATE 1 GM TABLET PO SCH (17:12)
[2019-05-29 17:20] VITALS: BP 120/84
[2019-05-30] MEDS: HALOPERIDOL 5 MG TABLET PO PRN ×2 (01:37→10:43)
[2019-05-30] MEDS: LORazepam 2 MG TABLET PO PRN ×4 (01:37→21:16)
[2019-05-30 01:41] VITALS: BP 101/65
[2019-05-30 08:15] VITALS: BP 93/85
[2019-05-30 09:58] VITALS: BP 118/64
[2019-05-30] MEDS: SUCRALFATE 1 GM TABLET PO SCH ×2 (10:01→17:07)
[2019-05-30] MEDS: METHADONE HCL 10 MG TABLET PO SCH (10:01)
[2019-05-30 16:51] VITALS: BP 90/60
[2019-05-31 05:40] VITALS: BP 104/67
[2019-05-31 08:00] VITALS: BP 119/83
[2019-05-31] MEDS: SUCRALFATE 1 GM TABLET PO SCH ×2 (09:17→16:08)
[2019-05-31] MEDS: METHADONE HCL 10 MG TABLET PO SCH (09:17)
[2019-05-31] MEDS: LORazepam 2 MG TABLET PO PRN ×3 (09:22→19:00)
[2019-05-31 21:08] VITALS: BP 121/85
[2019-05-31] MEDS: HALOPERIDOL 5 MG TABLET PO PRN (22:10)
[2019-05-31] MEDS: ZOLPIDEM TARTRATE 10 MG TABLET PO PRN (22:10)
[2019-06-01] MEDS: LORazepam 2 MG TABLET PO PRN ×4 (00:15→16:54)
[2019-06-01 02:01] VITALS: BP 116/77
[2019-06-01] MEDS: HALOPERIDOL 5 MG TABLET PO PRN ×2 (04:46→11:57)
[2019-06-01] MEDS: SUCRALFATE 1 GM TABLET PO SCH ×2 (07:47→16:29)
[2019-06-01] MEDS: METHADONE HCL 10 MG TABLET PO SCH (07:47)
[2019-06-01] MEDS: BuPROPion HCL XL 150 MG ER TABLET PO SCH (13:40)
[2019-06-01 18:09] VITALS: BP 110/66
[2019-06-02 08:30] VITALS: BP 112/60
[2019-06-02] MEDS: METHADONE HCL 10 MG TABLET PO SCH (09:01)
[2019-06-02] MEDS: BuPROPion HCL XL 150 MG ER TABLET PO SCH (09:02)
[2019-06-02] MEDS: SUCRALFATE 1 GM TABLET PO SCH ×2 (09:02→16:17)
[2019-06-02] MEDS: LORazepam 2 MG TABLET PO PRN ×3 (09:08→22:12)
[2019-06-02] MEDS: HALOPERIDOL 5 MG TABLET PO PRN ×3 (12:15→22:12)
[2019-06-02 18:13] VITALS: BP 129/79
[2019-06-03] MEDS: SUCRALFATE 1 GM TABLET PO SCH ×2 (08:20→16:19)
[2019-06-03] MEDS: BuPROPion HCL XL 150 MG ER TABLET PO SCH (08:21)
[2019-06-03] MEDS: METHADONE HCL 10 MG TABLET PO SCH (08:21)
[2019-06-03] MEDS: LORazepam 2 MG TABLET PO PRN ×3 (08:25→18:10)
[2019-06-03 08:52] VITALS: BP 105/61
[2019-06-03 16:30] VITALS: BP 117/83
[2019-06-03] MEDS: HALOPERIDOL 5 MG TABLET PO PRN (18:10)
[2019-06-03] MEDS: ZOLPIDEM TARTRATE 10 MG TABLET PO PRN (22:41)
[2019-06-04 00:13] VITALS: BP 123/96
[2019-06-04] MEDS: LORazepam 2 MG TABLET PO PRN ×3 (01:04→21:45)
[2019-06-04] MEDS: HALOPERIDOL 5 MG TABLET PO PRN ×3 (01:05→21:46)
[2019-06-04] MEDS: SUCRALFATE 1 GM TABLET PO SCH ×2 (09:40→16:58)
[2019-06-04] MEDS: BuPROPion HCL XL 150 MG ER TABLET PO SCH (09:40)
[2019-06-04] MEDS: METHADONE HCL 10 MG TABLET PO SCH (09:41)
[2019-06-04 09:52] VITALS: BP 108/75
[2019-06-04 16:23] VITALS: BP 114/62
[2019-06-04] MEDS: OLANZapine 5 MG TABLET PO SCH (16:58)
[2019-06-04 21:44] VITALS: BP 110/65
[2019-06-05 09:04] VITALS: BP 104/69
[2019-06-05] MEDS: SUCRALFATE 1 GM TABLET PO SCH ×2 (11:10→16:03)
[2019-06-05] MEDS: BuPROPion HCL XL 150 MG ER TABLET PO SCH (11:11)
[2019-06-05] MEDS: OLANZapine 5 MG TABLET PO SCH ×2 (11:11→16:03)
[2019-06-05] MEDS: METHADONE HCL 10 MG TABLET PO SCH (11:11)
[2019-06-05] MEDS: HALOPERIDOL 5 MG TABLET PO PRN ×3 (11:11→23:07)
[2019-06-05] MEDS: LORazepam 2 MG TABLET PO PRN ×3 (11:11→23:07)
[2019-06-05 16:01] VITALS: BP 117/76
[2019-06-05 23:00] VITALS: BP 116/72
[2019-06-06] MEDS: METHADONE HCL 10 MG TABLET PO SCH (08:40)
[2019-06-06] MEDS: OLANZapine 5 MG TABLET PO SCH ×2 (08:40→16:05)
[2019-06-06] MEDS: BuPROPion HCL XL 150 MG ER TABLET PO SCH (08:40)
[2019-06-06] MEDS: LORazepam 2 MG TABLET PO PRN ×2 (08:40→16:05)
[2019-06-06] MEDS: SUCRALFATE 1 GM TABLET PO SCH ×2 (08:41→16:04)
[2019-06-06 08:55] VITALS: BP 135/84
[2019-06-06 16:03] VITALS: BP 122/76
[2019-06-06] MEDS: HALOPERIDOL 5 MG TABLET PO PRN (16:04)
[2019-06-06] MEDS: ZOLPIDEM TARTRATE 10 MG TABLET PO PRN (20:45)
[2019-06-07 08:30] VITALS: BP 114/75
[2019-06-07] MEDS: BuPROPion HCL XL 150 MG ER TABLET PO SCH (09:36)
[2019-06-07] MEDS: SUCRALFATE 1 GM TABLET PO SCH ×2 (09:36→16:49)
[2019-06-07] MEDS: OLANZapine 5 MG TABLET PO SCH ×2 (09:36→16:49)
[2019-06-07] MEDS: METHADONE HCL 10 MG TABLET PO SCH (09:37)
[2019-06-07] MEDS: HALOPERIDOL 5 MG TABLET PO PRN ×2 (09:40→14:07)
[2019-06-07] MEDS: LORazepam 2 MG TABLET PO PRN ×3 (09:40→22:05)
[2019-06-07 17:57] VITALS: BP 100/58
[2019-06-08 03:27] VITALS: BP 114/73
[2019-06-08 08:00] VITALS: BP 110/77
[2019-06-08] MEDS: OLANZapine 5 MG TABLET PO SCH ×2 (08:27→17:03)
[2019-06-08] MEDS: SUCRALFATE 1 GM TABLET PO SCH ×2 (08:27→17:03)
[2019-06-08] MEDS: BuPROPion HCL XL 150 MG ER TABLET PO SCH (08:27)
[2019-06-08] MEDS: METHADONE HCL 10 MG TABLET PO SCH (08:27)
[2019-06-08] MEDS: LORazepam 2 MG TABLET PO PRN ×2 (08:28→13:14)
[2019-06-08] MEDS: HALOPERIDOL 5 MG TABLET PO PRN ×2 (08:28→13:14)
[2019-06-08] MEDS ORDERED: OLAN5TAB2 PO (14:13)
[2019-06-08] MEDS ORDERED: BUPR-93 PO (14:13)
== END 2019-06-08 18:30 | disposition home or self-care (01) | DRG 881 ==
LOC: EMS 15:16 → 3EI 05-29 01:00
PROVIDERS: ADMIT Psychiatry & Neurology Psychiatry; ATTEND Psychiatry & Neurology Psychiatry
DX: F32.9 Major depressive disorder, single episode, unspecified (principal); F11.20 Opioid dependence, uncomplicated; R45.851 Suicidal ideations; F20.9 Schizophrenia, unspecified; F10.10 Alcohol abuse, uncomplicated; Z71.41 Alcohol abuse counseling and surveillance of alcoholic; G89.29 Other chronic pain; I10 Essential (primary) hypertension; I73.9 Peripheral vascular disease, unspecified; K21.9 Gastro-esophageal reflux disease without esophagitis; Z95.0 Presence of cardiac pacemaker; Z87.891 Personal history of nicotine dependence; Z79.899 Other long term (current) drug therapy; Z88.2 Allergy status to sulfonamides; Z28.21 Immunization not carried out because of patient refusal
CPT/HCPCS: G0480

== ENCOUNTER 2019-07-01 13:34 | Emergency (ER) | payer MEDICAID, OTHER ==
[~2019-07-01] VITALS: Ht 190.5 cm; Wt 86.4 kg
[~2019-07-01 13:34] MED LIST changes: +BUPR-93 PO; -DIVA500T52 PO; -LEVO500 PO; -OLAN10TA3 PO; +OLAN5TAB2 PO
[2019-07-01] MEDS ORDERED: METH10 PO (13:46)
[2019-07-01 17:28] LABS: BASOPHILS % (AUTO) 0.6 % (0.0-2.0); HEMATOCRIT 38.5 % (41-53); HEMOGLOBIN 12.8 g/dL (13.5-17.5); LYMPHOCYTES # (AUTO) 2.1 K/uL (1.0-4.8); LYMPHOCYTES % (AUTO) 35.7 % (22.0-44.0); MEAN CORPUSCULAR HEMOGLOBIN 29.5 pg (26.0-34.0); MEAN CORPUSCULAR HGB CONC 33.3 G/dL (31.0-37.0); MEAN CORPUSCULAR VOLUME 89 fL (80-100); MONOCYTES # (AUTO) 0.6 K/uL (0.1-1.0); MONOCYTES % (AUTO) 9.2 % (2.0-9.0); NEUTROPHILS # (AUTO) 3.1 K/uL (1.8-7.7); NEUTROPHILS % (AUTO) 51.5 % (40.0-70.0); PLATELET COUNT (AUTO) 284 K/uL (150-450); RED BLOOD CELL COUNT(AUTO) 4.35 MIL/uL (4.50-5.90); RED CELL DISTRIBUTION WIDTH 15.3 % (11.5-14.5)
[2019-07-01] MEDS: LORazepam 1 MG TABLET PO ONE (17:48)
[2019-07-01 18:02] LABS: ANION GAP 8 mmol/L (8-16); CALCIUM, TOTAL 9.1 mg/dL (8.8-10.5); CARBON DIOXIDE 27 mmol/L (22-29); CHLORIDE 104 mmol/L (98-107); CREATININE 0.99 mg/dL (0.60-1.30); GLOMERULAR FILTR. RATE CALC > 60 mL/min (>60); GLUCOSE,RANDOM 85 mg/dL (70-110); POTASSIUM 3.9 mmol/L (3.5-5.1); SODIUM SERUM 139 mmol/L (136-145); UREA NITROGEN, BLOOD 8 mg/dL (7-18)
[2019-07-01 18:08] LABS: ALANINE AMINOTRANSFERASE 23 U/L (12-78); ALBUMIN 3.5 g/dL (3.4-5.0); ALKALINE PHOSPHATASE 108 U/L (46-116); ASPARTATE AMINOTRANSFERASE 18 U/L (15-37); BILIRUBIN,TOTAL 0.4 mg/dL (0.1-1.0); TOTAL PROTEIN, SERUM 7.1 g/dL (6.4-8.2)
[2019-07-01 19:02] VITALS: BP 126/82
== END 2019-07-01 19:35 | disposition home or self-care (01) ==
LOC: EMS 13:38
DX: F32.9 Major depressive disorder, single episode, unspecified (principal); G89.29 Other chronic pain; F41.9 Anxiety disorder, unspecified; F20.9 Schizophrenia, unspecified; F11.10 Opioid abuse, uncomplicated; F17.210 Nicotine dependence, cigarettes, uncomplicated; Z59.0 Homelessness; Z98.890 Other specified postprocedural states; Z79.899 Other long term (current) drug therapy; Z88.2 Allergy status to sulfonamides
CPT/HCPCS: 36415; 80053; 85025; 99284; G0480

== ENCOUNTER 2019-07-25 02:08 | Inpatient (IN) | payer MEDICAID, OTHER ==
[~2019-07-25] VITALS: Ht 188 cm; Wt 98.4 kg
[~2019-07-25 02:08] MED LIST changes: +METH10 PO
[2019-07-25 02:35] LABS: BASOPHILS % (AUTO) 0.8 % (0.0-2.0); EOSINOPHILS % (AUTO) 2.7 % (1.0-6.0); HEMATOCRIT 39.5 % (41-53); LYMPHOCYTES # (AUTO) 2.4 K/uL (1.0-4.8); LYMPHOCYTES % (AUTO) 26.8 % (22.0-44.0); MEAN CORPUSCULAR HEMOGLOBIN 29.4 pg (26.0-34.0); MEAN CORPUSCULAR HGB CONC 32.8 G/dL (31.0-37.0); MEAN CORPUSCULAR VOLUME 89 fL (80-100); MONOCYTES # (AUTO) 0.7 K/uL (0.1-1.0); MONOCYTES % (AUTO) 7.8 % (2.0-9.0); NEUTROPHILS # (AUTO) 5.6 K/uL (1.8-7.7); NEUTROPHILS % (AUTO) 61.9 % (40.0-70.0); PLATELET COUNT (AUTO) 300 K/uL (150-450); RED BLOOD CELL COUNT(AUTO) 4.42 MIL/uL (4.50-5.90); RED CELL DISTRIBUTION WIDTH 15.1 % (11.5-14.5)
[2019-07-25 02:48] LABS: ANION GAP 7 mmol/L (8-16); CALCIUM, TOTAL 9.2 mg/dL (8.8-10.5); CARBON DIOXIDE 31 mmol/L (22-29); CHLORIDE 103 mmol/L (98-107); GLOMERULAR FILTR. RATE CALC > 60 mL/min (>60); GLUCOSE,RANDOM 74 mg/dL (70-110); POTASSIUM 3.9 mmol/L (3.5-5.1); SODIUM SERUM 141 mmol/L (136-145); UREA NITROGEN, BLOOD 16 mg/dL (7-18)
[2019-07-25 02:53] LABS: ALANINE AMINOTRANSFERASE 26 U/L (12-78); ALBUMIN 3.8 g/dL (3.4-5.0); ALKALINE PHOSPHATASE 109 U/L (46-116); ASPARTATE AMINOTRANSFERASE 18 U/L (15-37); BILIRUBIN,TOTAL 0.3 mg/dL (0.1-1.0); TOTAL PROTEIN, SERUM 7.8 g/dL (6.4-8.2)
[2019-07-25 09:00] VITALS: BP 114/76
[2019-07-25] MEDS: METHADONE HCL 10 MG TABLET PO SCH (10:19)
[2019-07-25] MEDS ORDERED: ALBUTEROL SULFATE HFA 90 MCG/PUFF 8 GM INHALER IH PRN (12:00)
[2019-07-25] MEDS ORDERED: MAGNESIUM HYDROXIDE SUSPENSION 30 ML UDCUP PO PRN (12:00)
[2019-07-25] MEDS ORDERED: LOPERAMIDE HCL 2 MG CAPSULE PO PRN (12:00)
[2019-07-25] MEDS ORDERED: CloNIDine HCL 0.1 MG TABLET PO PRN (12:00)
[2019-07-25] MEDS ORDERED: PETROLATUM,WHITE 28 GM JELLY TP PRN (12:00)
[2019-07-25] MEDS ORDERED: ACETAMINOPHEN 325 MG TABLET PO PRN (12:00)
[2019-07-25] MEDS ORDERED: ONDANSETRON HCL 4 MG TABLET PO PRN (12:00)
[2019-07-25] MEDS ORDERED: NICOTINE 14 MG/24 HOUR PATCH TD PRN (12:00)
[2019-07-25] MEDS ORDERED: GuaiFENesin/D-METHORPHAN [SUGAR-FREE] 200-20MG/10 ML SYRUP UDCUP PO PRN (12:00)
[2019-07-25] MEDS ORDERED: MAG HYDROX/AL HYDROX/SIMETH ES 30 ML SUSPENSION UDCUP PO PRN (12:00)
[2019-07-25] MEDS ORDERED: DOCUSATE SODIUM 100 MG CAPSULE PO PRN (12:00)
[2019-07-25] MEDS ORDERED: PNEUMOCOCCAL VACCINE POLYVALENT 0.5 ML VIAL [PPSV23] IM ONE (12:30)
[2019-07-25] MEDS ORDERED: INFLUENZA VIRUS VACCINE QVS 2019-20 (3YR+)/PF 60 MCG/0.5 ML SYRINGE IM ONE (12:30)
[2019-07-25] MEDS: SUCRALFATE 1 GM TABLET PO SCH (16:15)
[2019-07-25] MEDS: OLANZapine 5 MG TABLET PO SCH (16:16)
[2019-07-25] MEDS: LORazepam 2 MG TABLET PO PRN (16:16)
[2019-07-25 16:40] VITALS: BP 132/89
[2019-07-26 06:36] VITALS: BP 100/62
[2019-07-26 07:45] LABS: BASOPHILS % (AUTO) 0.7 % (0.0-2.0); EOSINOPHILS % (AUTO) 3.8 % (1.0-6.0); HEMATOCRIT 40.4 % (41-53); HEMOGLOBIN 13.5 g/dL (13.5-17.5); LYMPHOCYTES # (AUTO) 2.3 K/uL (1.0-4.8); LYMPHOCYTES % (AUTO) 37.6 % (22.0-44.0); MEAN CORPUSCULAR HEMOGLOBIN 29.6 pg (26.0-34.0); MEAN CORPUSCULAR HGB CONC 33.5 G/dL (31.0-37.0); MEAN CORPUSCULAR VOLUME 88 fL (80-100); MONOCYTES # (AUTO) 0.5 K/uL (0.1-1.0); MONOCYTES % (AUTO) 8.2 % (2.0-9.0); NEUTROPHILS # (AUTO) 3.1 K/uL (1.8-7.7); NEUTROPHILS % (AUTO) 49.7 % (40.0-70.0); PLATELET COUNT (AUTO) 276 K/uL (150-450); RED BLOOD CELL COUNT(AUTO) 4.57 MIL/uL (4.50-5.90); RED CELL DISTRIBUTION WIDTH 15.2 % (11.5-14.5)
[2019-07-26 08:11] LABS: ALANINE AMINOTRANSFERASE 26 U/L (12-78); ALBUMIN 3.2 g/dL (3.4-5.0); ALKALINE PHOSPHATASE 90 U/L (46-116); ANION GAP 8 mmol/L (8-16); ASPARTATE AMINOTRANSFERASE 15 U/L (15-37); BILIRUBIN,TOTAL 0.4 mg/dL (0.1-1.0); CALCIUM, TOTAL 9.2 mg/dL (8.8-10.5); CARBON DIOXIDE 28 mmol/L (22-29); CHLORIDE 105 mmol/L (98-107); CHOL/HDL RATIO 2.3 (4.2-7.3); CHOLESTEROL 174 mg/dL (131-200); GLOMERULAR FILTR. RATE CALC > 60 mL/min (>60); GLUCOSE,RANDOM 82 mg/dL (70-110); HDL CHOLESTEROL 76 mg/dL (40-60); LDL CHOL (CALC.) 87 mg/dL (0-130); POTASSIUM 4.1 mmol/L (3.5-5.1); SODIUM SERUM 141 mmol/L (136-145); THYROID STIMULATING HORMONE 1.23 uIU/mL (0.36-3.74); TOTAL PROTEIN, SERUM 7.1 g/dL (6.4-8.2); TRIGLYCERIDES 53 mg/dL (15-150)
[2019-07-26 08:14] VITALS: BP 109/54
[2019-07-26 08:16] LABS: CREATININE 0.85 mg/dL (0.60-1.30); HEMOGLOBIN A1C 5.6 % (4.5-6.2); UREA NITROGEN, BLOOD 12 mg/dL (7-18)
[2019-07-26] MEDS: OLANZapine 5 MG TABLET PO SCH ×2 (10:17→17:36)
[2019-07-26] MEDS: BuPROPion HCL XL 150 MG ER TABLET PO SCH (10:17)
[2019-07-26] MEDS: SUCRALFATE 1 GM TABLET PO SCH ×2 (10:18→17:36)
[2019-07-26 10:26] VITALS: BP 104/73
[2019-07-26] MEDS: METHADONE HCL 10 MG TABLET PO SCH (10:27)
[2019-07-26] MEDS: IBUPROFEN 400 MG TABLET PO PRN (13:08)
[2019-07-26 16:05] VITALS: BP 107/62
[2019-07-27 05:24] VITALS: BP 100/54
[2019-07-27 08:12] VITALS: BP 116/66
[2019-07-27] MEDS: SUCRALFATE 1 GM TABLET PO SCH ×2 (08:22→16:44)
[2019-07-27] MEDS: BuPROPion HCL XL 150 MG ER TABLET PO SCH (08:22)
[2019-07-27] MEDS: OLANZapine 5 MG TABLET PO SCH ×2 (08:23→16:44)
[2019-07-27] MEDS: METHADONE HCL 10 MG TABLET PO SCH (08:23)
[2019-07-27 09:46] VITALS: BP 105/75
[2019-07-27] MEDS: LORazepam 2 MG TABLET PO PRN ×2 (10:10→16:44)
[2019-07-27 16:57] VITALS: BP 110/54
[2019-07-27 17:25] VITALS: BP 108/65
[2019-07-28 01:15] VITALS: BP 111/68
[2019-07-28] MEDS: LORazepam 2 MG TABLET PO PRN ×4 (01:30→19:28)
[2019-07-28] MEDS: OLANZapine 5 MG TABLET PO SCH ×2 (08:23→17:07)
[2019-07-28] MEDS: SUCRALFATE 1 GM TABLET PO SCH ×2 (08:23→17:07)
[2019-07-28] MEDS: BuPROPion HCL XL 150 MG ER TABLET PO SCH (08:24)
[2019-07-28] MEDS: METHADONE HCL 10 MG TABLET PO SCH (08:26)
[2019-07-28 08:30] VITALS: BP 110/72
[2019-07-28] MEDS: IBUPROFEN 400 MG TABLET PO PRN (10:34)
[2019-07-28 16:02] VITALS: BP 119/85
[2019-07-29 06:19] VITALS: BP 108/66
[2019-07-29 08:12] VITALS: BP 103/60
[2019-07-29] MEDS: BuPROPion HCL XL 150 MG ER TABLET PO SCH (08:40)
[2019-07-29] MEDS: SUCRALFATE 1 GM TABLET PO SCH ×2 (08:40→16:53)
[2019-07-29] MEDS: OLANZapine 5 MG TABLET PO SCH ×2 (08:40→16:53)
[2019-07-29] MEDS: METHADONE HCL 10 MG TABLET PO SCH (08:41)
[2019-07-29] MEDS: LORazepam 2 MG TABLET PO PRN ×4 (08:43→21:43)
[2019-07-29] MEDS: HALOPERIDOL 5 MG TABLET PO PRN (13:31)
[2019-07-29 17:51] VITALS: BP 120/78
[2019-07-30 07:01] VITALS: BP 118/72
[2019-07-30 08:15] VITALS: BP 114/90
[2019-07-30] MEDS: METHADONE HCL 10 MG TABLET PO SCH (08:37)
[2019-07-30] MEDS: SUCRALFATE 1 GM TABLET PO SCH ×2 (08:37→16:48)
[2019-07-30] MEDS: OLANZapine 5 MG TABLET PO SCH ×2 (08:37→16:48)
[2019-07-30] MEDS: BuPROPion HCL XL 150 MG ER TABLET PO SCH (08:38)
[2019-07-30] MEDS: HALOPERIDOL 5 MG TABLET PO PRN (11:30)
[2019-07-30] MEDS: LORazepam 2 MG TABLET PO PRN ×3 (11:30→21:51)
[2019-07-30 16:09] VITALS: BP 105/65
[2019-07-30] MEDS ORDERED: NICOTINE POLACRILEX 2 MG LOZENGE PO PRN (20:15)
[2019-07-30] MEDS: MAGNESIUM SULFATE 454 GM BOX TP SCH (21:52)
[2019-07-30] MEDS: COLLOIDAL OATMEAL/DIMETH 227 GM LOTION TP SCH (21:53)
[2019-07-31 06:40] VITALS: BP 109/69
[2019-07-31 08:14] VITALS: BP 109/62
[2019-07-31] MEDS: BuPROPion HCL XL 150 MG ER TABLET PO SCH (08:25)
[2019-07-31] MEDS: SUCRALFATE 1 GM TABLET PO SCH ×2 (08:25→17:05)
[2019-07-31] MEDS: METHADONE HCL 10 MG TABLET PO SCH (08:25)
[2019-07-31] MEDS: OLANZapine 5 MG TABLET PO SCH ×2 (08:25→17:05)
[2019-07-31] MEDS: COLLOIDAL OATMEAL/DIMETH 227 GM LOTION TP SCH ×2 (08:26→17:00)
[2019-07-31] MEDS: MAGNESIUM SULFATE 454 GM BOX TP SCH ×2 (08:26→17:00)
[2019-07-31] MEDS: IBUPROFEN 400 MG TABLET PO PRN (10:56)
[2019-07-31 16:02] VITALS: BP 110/70
[2019-07-31] MEDS: LORazepam 2 MG TABLET PO PRN ×2 (17:05→21:07)
[2019-08-01 06:10] VITALS: BP 112/68
[2019-08-01 08:25] VITALS: BP 117/60
[2019-08-01] MEDS: OLANZapine 5 MG TABLET PO SCH ×2 (08:43→16:58)
[2019-08-01] MEDS: SUCRALFATE 1 GM TABLET PO SCH ×2 (08:43→16:58)
[2019-08-01] MEDS: BuPROPion HCL XL 150 MG ER TABLET PO SCH (08:43)
[2019-08-01] MEDS: METHADONE HCL 10 MG TABLET PO SCH (08:43)
[2019-08-01] MEDS: MAGNESIUM SULFATE 454 GM BOX TP SCH ×2 (08:44→16:58)
[2019-08-01] MEDS: COLLOIDAL OATMEAL/DIMETH 227 GM LOTION TP SCH ×2 (08:44→16:58)
[2019-08-01] MEDS: LORazepam 2 MG TABLET PO PRN ×3 (10:56→22:04)
[2019-08-01 16:00] VITALS: BP 108/68
[2019-08-02 00:47] VITALS: BP 120/80
[2019-08-02 08:26] VITALS: BP 102/63
[2019-08-02] MEDS: MAGNESIUM SULFATE 454 GM BOX TP SCH ×2 (09:00→16:30)
[2019-08-02] MEDS: COLLOIDAL OATMEAL/DIMETH 227 GM LOTION TP SCH ×2 (09:00→16:30)
[2019-08-02] MEDS: SUCRALFATE 1 GM TABLET PO SCH ×2 (09:01→16:29)
[2019-08-02] MEDS: OLANZapine 5 MG TABLET PO SCH ×2 (09:01→16:30)
[2019-08-02] MEDS: BuPROPion HCL XL 150 MG ER TABLET PO SCH (09:01)
[2019-08-02] MEDS: METHADONE HCL 10 MG TABLET PO SCH (09:02)
[2019-08-02] MEDS: LORazepam 2 MG TABLET PO PRN ×3 (11:17→21:52)
[2019-08-02 16:02] VITALS: BP 113/73
[2019-08-03 01:24] VITALS: BP 108/68
[2019-08-03 08:23] VITALS: BP 99/58
[2019-08-03] MEDS: METHADONE HCL 10 MG TABLET PO SCH (09:00)
[2019-08-03] MEDS: OLANZapine 5 MG TABLET PO SCH ×2 (09:00→17:24)
[2019-08-03] MEDS: BuPROPion HCL XL 150 MG ER TABLET PO SCH (09:01)
[2019-08-03] MEDS: LORazepam 2 MG TABLET PO PRN ×2 (09:18→17:24)
[2019-08-03] MEDS: SUCRALFATE 1 GM TABLET PO SCH ×2 (09:52→17:24)
[2019-08-03] MEDS: COLLOIDAL OATMEAL/DIMETH 227 GM LOTION TP SCH ×2 (09:59→17:25)
[2019-08-03] MEDS: MAGNESIUM SULFATE 454 GM BOX TP SCH ×2 (11:51→15:39)
[2019-08-03 16:02] VITALS: BP 122/71
[2019-08-04 08:12] VITALS: BP 102/66
[2019-08-04] MEDS: METHADONE HCL 10 MG TABLET PO SCH (08:22)
[2019-08-04] MEDS: COLLOIDAL OATMEAL/DIMETH 227 GM LOTION TP SCH ×3 (08:23→17:00)
[2019-08-04] MEDS: OLANZapine 5 MG TABLET PO SCH ×2 (08:23→16:23)
[2019-08-04] MEDS: SUCRALFATE 1 GM TABLET PO SCH ×2 (08:23→16:23)
[2019-08-04] MEDS: MAGNESIUM SULFATE 454 GM BOX TP SCH ×3 (08:23→17:00)
[2019-08-04] MEDS: BuPROPion HCL XL 150 MG ER TABLET PO SCH (08:23)
[2019-08-04] MEDS: LORazepam 2 MG TABLET PO PRN ×2 (09:18→14:39)
[2019-08-04 16:05] VITALS: BP 103/62
[2019-08-05] MEDS: LORazepam 2 MG TABLET PO PRN ×4 (00:14→20:34)
[2019-08-05 00:26] VITALS: BP 117/75
[2019-08-05] MEDS: METHADONE HCL 10 MG TABLET PO SCH (08:16)
[2019-08-05] MEDS: BuPROPion HCL XL 150 MG ER TABLET PO SCH (08:18)
[2019-08-05] MEDS: OLANZapine 5 MG TABLET PO SCH ×2 (08:18→16:04)
[2019-08-05] MEDS: SUCRALFATE 1 GM TABLET PO SCH ×2 (08:24→16:04)
[2019-08-05 08:26] VITALS: BP 110/72
[2019-08-05] MEDS: IBUPROFEN 400 MG TABLET PO PRN (09:42)
[2019-08-05] MEDS: MAGNESIUM SULFATE 454 GM BOX TP SCH ×2 (10:13→16:52)
[2019-08-05] MEDS: COLLOIDAL OATMEAL/DIMETH 227 GM LOTION TP SCH ×2 (10:13→16:52)
[2019-08-05 16:32] VITALS: BP 93/63
[2019-08-06 05:32] VITALS: BP 100/59
[2019-08-06 08:01] VITALS: BP 110/60
[2019-08-06] MEDS: SUCRALFATE 1 GM TABLET PO SCH ×2 (08:38→16:04)
[2019-08-06] MEDS: OLANZapine 5 MG TABLET PO SCH ×2 (08:39→16:04)
[2019-08-06] MEDS: BuPROPion HCL XL 150 MG ER TABLET PO SCH (08:39)
[2019-08-06] MEDS: COLLOIDAL OATMEAL/DIMETH 227 GM LOTION TP SCH ×2 (08:45→16:35)
[2019-08-06] MEDS: MAGNESIUM SULFATE 454 GM BOX TP SCH ×2 (08:45→16:35)
[2019-08-06] MEDS: METHADONE HCL 10 MG TABLET PO SCH (10:19)
[2019-08-06] MEDS: LORazepam 2 MG TABLET PO PRN ×3 (10:20→19:06)
[2019-08-06 16:02] VITALS: BP 104/78
[2019-08-07 00:39] VITALS: BP 102/62
[2019-08-07] MEDS: LORazepam 2 MG TABLET PO PRN ×3 (06:52→21:57)
[2019-08-07 08:14] VITALS: BP_SYST 112
[2019-08-07] MEDS: SUCRALFATE 1 GM TABLET PO SCH ×2 (08:48→16:00)
[2019-08-07] MEDS: BuPROPion HCL XL 150 MG ER TABLET PO SCH (08:48)
[2019-08-07] MEDS: MULTIVITAMINS WITH MINERALS, THERAPEUTIC TABLET PO SCH (08:48)
[2019-08-07] MEDS: METHADONE HCL 10 MG TABLET PO SCH (08:48)
[2019-08-07] MEDS: MAGNESIUM SULFATE 454 GM BOX TP SCH ×2 (08:49→16:03)
[2019-08-07] MEDS: COLLOIDAL OATMEAL/DIMETH 227 GM LOTION TP SCH ×2 (08:49→16:00)
[2019-08-07] MEDS: OLANZapine 5 MG TABLET PO SCH ×2 (09:10→16:00)
[2019-08-07 16:01] VITALS: BP 137/75
[2019-08-08 05:46] VITALS: BP 17/58
[2019-08-08 08:04] VITALS: BP 109/61
[2019-08-08] MEDS: METHADONE HCL 10 MG TABLET PO SCH (08:39)
[2019-08-08] MEDS: MULTIVITAMINS WITH MINERALS, THERAPEUTIC TABLET PO SCH (08:40)
[2019-08-08] MEDS: BuPROPion HCL XL 150 MG ER TABLET PO SCH (08:40)
[2019-08-08] MEDS: SUCRALFATE 1 GM TABLET PO SCH ×2 (08:40→16:34)
[2019-08-08] MEDS: OLANZapine 5 MG TABLET PO SCH ×2 (08:40→16:34)
[2019-08-08] MEDS: COLLOIDAL OATMEAL/DIMETH 227 GM LOTION TP SCH ×2 (08:41→16:34)
[2019-08-08] MEDS: MAGNESIUM SULFATE 454 GM BOX TP SCH ×2 (08:41→16:34)
[2019-08-08] MEDS: LORazepam 2 MG TABLET PO PRN ×3 (09:32→21:02)
[2019-08-08 17:30] VITALS: BP 109/66
[2019-08-08] MEDS: ZOLPIDEM TARTRATE 10 MG TABLET PO PRN (22:07)
[2019-08-09 05:34] VITALS: BP 100/43
[2019-08-09] MEDS: LORazepam 2 MG TABLET PO PRN ×4 (06:41→20:40)
[2019-08-09 08:00] VITALS: BP 110/60
[2019-08-09] MEDS: METHADONE HCL 10 MG TABLET PO SCH (08:42)
[2019-08-09] MEDS: MULTIVITAMINS WITH MINERALS, THERAPEUTIC TABLET PO SCH (08:47)
[2019-08-09] MEDS: OLANZapine 5 MG TABLET PO SCH ×2 (08:47→16:39)
[2019-08-09] MEDS: BuPROPion HCL XL 150 MG ER TABLET PO SCH (08:47)
[2019-08-09] MEDS: SUCRALFATE 1 GM TABLET PO SCH ×2 (08:48→16:39)
[2019-08-09] MEDS: MAGNESIUM SULFATE 454 GM BOX TP SCH ×2 (09:00→16:43)
[2019-08-09] MEDS: COLLOIDAL OATMEAL/DIMETH 227 GM LOTION TP SCH ×2 (09:00→16:43)
[2019-08-09 16:01] VITALS: BP 104/60
[2019-08-09] MEDS: ZOLPIDEM TARTRATE 10 MG TABLET PO PRN (20:40)
[2019-08-10 06:12] VITALS: BP 106/65
[2019-08-10 08:00] VITALS: BP 103/59
[2019-08-10] MEDS: LORazepam 2 MG TABLET PO PRN (08:26)
[2019-08-10] MEDS: MULTIVITAMINS WITH MINERALS, THERAPEUTIC TABLET PO SCH (08:27)
[2019-08-10] MEDS: OLANZapine 5 MG TABLET PO SCH (08:27)
[2019-08-10] MEDS: BuPROPion HCL XL 150 MG ER TABLET PO SCH (08:27)
[2019-08-10] MEDS: MAGNESIUM SULFATE 454 GM BOX TP SCH (09:00)
[2019-08-10] MEDS: COLLOIDAL OATMEAL/DIMETH 227 GM LOTION TP SCH (09:17)
[2019-08-10] MEDS: SUCRALFATE 1 GM TABLET PO SCH (09:17)
[2019-08-10] MEDS: METHADONE HCL 10 MG TABLET PO SCH (09:17)
[2019-08-10] MEDS ORDERED: SUCR1TAB28 PO (12:37)
[2019-08-10] MEDS ORDERED: BUPR-93 PO (12:37)
[2019-08-10] MEDS ORDERED: OLAN5TAB2 PO (12:37)
== END 2019-08-10 15:30 | disposition home or self-care (01) | DRG 750 ==
LOC: EMS 02:10 → B3A 08:22
PROVIDERS: ADMIT Psychiatry & Neurology Child & Adolescent Psychiatry; ATTEND Psychiatry & Neurology Child & Adolescent Psychiatry
DX: F25.1 Schizoaffective disorder, depressive type (principal); R45.851 Suicidal ideations; Z59.0 Homelessness; F15.90 Other stimulant use, unspecified, uncomplicated; F17.200 Nicotine dependence, unspecified, uncomplicated; F41.9 Anxiety disorder, unspecified; G89.29 Other chronic pain; I10 Essential (primary) hypertension; K21.9 Gastro-esophageal reflux disease without esophagitis; Z91.14 Patient's other noncompliance with medication regimen; F10.10 Alcohol abuse, uncomplicated; F11.90 Opioid use, unspecified, uncomplicated; M54.9 Dorsalgia, unspecified
CPT/HCPCS: 83036; 84443; G0480; J3535

== ENCOUNTER 2019-09-29 13:53 | Inpatient (IN) | payer MEDICAID, OTHER ==
[~2019-09-29] VITALS: Ht 193 cm; Wt 98.0 kg
[~2019-09-29 13:53] MED LIST changes: -METH10 PO; -SUCR1TAB PO; +SUCR1TAB28 PO
[2019-09-29] MEDS ORDERED: METH10 PO (13:59)
[2019-09-29 16:44] LABS: BASOPHILS % (AUTO) 0.9 % (0.0-2.0); EOSINOPHILS % (AUTO) 3.5 % (1.0-6.0); HEMOGLOBIN 14.5 g/dL (13.5-17.5); LYMPHOCYTES # (AUTO) 2.9 K/uL (1.0-4.8); LYMPHOCYTES % (AUTO) 43.1 % (22.0-44.0); MEAN CORPUSCULAR HEMOGLOBIN 29.7 pg (26.0-34.0); MEAN CORPUSCULAR VOLUME 90 fL (80-100); MONOCYTES # (AUTO) 0.5 K/uL (0.1-1.0); NEUTROPHILS # (AUTO) 3.1 K/uL (1.8-7.7); NEUTROPHILS % (AUTO) 45.5 % (40.0-70.0); PLATELET COUNT (AUTO) 276 K/uL (150-450); RED BLOOD CELL COUNT(AUTO) 4.89 MIL/uL (4.50-5.90); RED CELL DISTRIBUTION WIDTH 14.4 % (11.5-14.5)
[2019-09-29 16:51] LABS: ANION GAP 13 mmol/L (8-16); CALCIUM, TOTAL 8.7 mg/dL (8.8-10.5); CARBON DIOXIDE 26 mmol/L (22-29); CHLORIDE 103 mmol/L (98-107); CREATININE 0.83 mg/dL (0.60-1.30); GLOMERULAR FILTR. RATE CALC > 60 mL/min (>60); GLUCOSE,RANDOM 113 mg/dL (70-110); SODIUM SERUM 142 mmol/L (136-145); UREA NITROGEN, BLOOD 13 mg/dL (7-18)
[2019-09-29 16:56] LABS: ALANINE AMINOTRANSFERASE 28 U/L (12-78); ALBUMIN 3.9 g/dL (3.4-5.0); ALKALINE PHOSPHATASE 101 U/L (46-116); ASPARTATE AMINOTRANSFERASE 18 U/L (15-37); BILIRUBIN,TOTAL 0.3 mg/dL (0.1-1.0); TOTAL PROTEIN, SERUM 7.6 g/dL (6.4-8.2)
[2019-09-29] MEDS ORDERED: LORazepam 2 MG TABLET PO ONE (17:00)
[2019-09-29 19:12] LABS: AMPHET/METH SCREEN,URINE NEGATIVE (NEGATIVE); BARBITURATE SCREEN, URINE NEGATIVE (NEGATIVE); BENZODIAZEPINES SCREEN,URINE NEGATIVE (NEGATIVE); CANNABINOID SCREEN,URINE NEGATIVE (NEGATIVE); COCAINE SCREEN,URINE NEGATIVE (NEGATIVE); METHADONE SCREEN, URINE POSITIVE (NEGATIVE); OPIATE SCREEN,URINE NEGATIVE (NEGATIVE)
[2019-09-29 19:13] LABS: PHENCYCLIDINE SCREEN,URINE NEGATIVE (NEGATIVE)
[2019-09-29 20:30] VITALS: BP 112/85
[2019-09-29] MEDS ORDERED: MAG HYDROX/AL HYDROX/SIMETH ES 30 ML SUSPENSION UDCUP PO PRN (21:30)
[2019-09-29] MEDS ORDERED: BACITRACIN 28.4 GM OINTMENT TP PRN (21:30)
[2019-09-29] MEDS ORDERED: MAGNESIUM HYDROXIDE SUSPENSION 30 ML UDCUP PO PRN (21:30)
[2019-09-29] MEDS ORDERED: ALBUTEROL SULFATE HFA 90 MCG/PUFF 8 GM INHALER IH PRN (21:30)
[2019-09-29] MEDS ORDERED: DOCUSATE SODIUM 100 MG CAPSULE PO PRN (21:30)
[2019-09-29] MEDS ORDERED: PETROLATUM,WHITE 28 GM JELLY TP PRN (21:30)
[2019-09-29] MEDS ORDERED: ACETAMINOPHEN 325 MG TABLET PO PRN (21:30)
[2019-09-29] MEDS ORDERED: CloNIDine HCL 0.1 MG TABLET PO PRN (21:30)
[2019-09-29] MEDS ORDERED: BENZOCAINE/MENTHOL LOZENGE MM PRN (21:30)
[2019-09-29] MEDS ORDERED: LOPERAMIDE HCL 2 MG CAPSULE PO PRN (21:30)
[2019-09-29] MEDS ORDERED: ONDANSETRON HCL 4 MG TABLET PO PRN (21:30)
[2019-09-29] MEDS: LORazepam 2 MG TABLET PO PRN (23:40)
[2019-09-30 00:02] VITALS: BP 136/83
[2019-09-30 04:25] VITALS: BP 111/60
[2019-09-30] MEDS: LORazepam 2 MG TABLET PO PRN ×2 (04:26→17:39)
[2019-09-30] MEDS: HALOPERIDOL 5 MG TABLET PO PRN ×2 (04:26→17:39)
[2019-09-30 08:17] LABS: CHOL/HDL RATIO 2.1 (4.2-7.3); FREE T4 (FREE THYROXINE) 1.31 ng/dL (0.76-1.46); THYROID STIMULATING HORMONE 2.21 uIU/mL (0.36-3.74)
[2019-09-30 08:46] VITALS: BP 93/60
[2019-09-30] MEDS: METHADONE HCL 10 MG TABLET PO SCH (11:11)
[2019-09-30] MEDS ORDERED: INFLUENZA VIRUS VACCINE QVS 2019-20 (3YR+)/PF 60 MCG/0.5 ML SYRINGE IM ONE (11:45)
[2019-09-30 16:00] VITALS: BP 118/74
[2019-09-30] MEDS: OLANZapine 5 MG TABLET PO SCH (17:59)
[2019-10-01 08:00] VITALS: BP 127/69
[2019-10-01] MEDS: OLANZapine 5 MG TABLET PO SCH ×2 (09:25→16:10)
[2019-10-01] MEDS: METHADONE HCL 10 MG TABLET PO SCH (09:25)
[2019-10-01] MEDS: BuPROPion HCL XL 150 MG ER TABLET PO SCH (09:25)
[2019-10-01] MEDS: LORazepam 2 MG TABLET PO PRN ×2 (11:47→16:10)
[2019-10-01 16:59] VITALS: BP 117/70
[2019-10-02 01:10] VITALS: BP 122/80
[2019-10-02] MEDS: LORazepam 2 MG TABLET PO PRN ×5 (01:12→22:25)
[2019-10-02] MEDS: HALOPERIDOL 5 MG TABLET PO PRN (01:12)
[2019-10-02] MEDS: BuPROPion HCL XL 150 MG ER TABLET PO SCH (09:59)
[2019-10-02] MEDS: METHADONE HCL 10 MG TABLET PO SCH (09:59)
[2019-10-02] MEDS: OLANZapine 5 MG TABLET PO SCH ×2 (09:59→16:00)
[2019-10-02 12:33] VITALS: BP 108/68
[2019-10-03] MEDS: ZOLPIDEM TARTRATE 10 MG TABLET PO PRN (00:14)
[2019-10-03 00:36] VITALS: BP 155/61
[2019-10-03] MEDS: LORazepam 2 MG TABLET PO PRN ×3 (06:45→20:45)
[2019-10-03] MEDS: OLANZapine 5 MG TABLET PO SCH ×2 (09:04→16:06)
[2019-10-03] MEDS: BuPROPion HCL XL 150 MG ER TABLET PO SCH (09:04)
[2019-10-03] MEDS: METHADONE HCL 10 MG TABLET PO SCH (09:04)
[2019-10-03 09:41] VITALS: BP 105/67
[2019-10-03] MEDS: HALOPERIDOL 5 MG TABLET PO PRN (16:05)
[2019-10-03 17:20] VITALS: BP 121/82
[2019-10-04] MEDS: OLANZapine 5 MG TABLET PO SCH ×2 (09:42→17:14)
[2019-10-04] MEDS: METHADONE HCL 10 MG TABLET PO SCH (09:42)
[2019-10-04] MEDS: BuPROPion HCL XL 150 MG ER TABLET PO SCH (09:42)
[2019-10-04] MEDS: LORazepam 2 MG TABLET PO PRN (09:51)
[2019-10-04 10:22] VITALS: BP 129/84
[2019-10-04] MEDS: HALOPERIDOL 5 MG TABLET PO PRN ×2 (12:26→23:12)
[2019-10-04] MEDS ORDERED: GuaiFENesin/D-METHORPHAN [SUGAR-FREE] 200-20MG/10 ML SYRUP UDCUP PO PRN (16:15)
[2019-10-04] MEDS: THIAMINE HCL 100 MG TABLET PO SCH (17:14)
[2019-10-04] MEDS: ACAMPROSATE CALCIUM 333 MG DR TABLET PO SCH (17:14)
[2019-10-04 19:56] VITALS: BP 103/70
[2019-10-04] MEDS: HydrOXYzine PAMOATE 50 MG CAPSULE PO PRN (23:12)
[2019-10-05] MEDS: THIAMINE HCL 100 MG TABLET PO SCH ×2 (08:43→16:35)
[2019-10-05] MEDS: METHADONE HCL 10 MG TABLET PO SCH (08:43)
[2019-10-05] MEDS: BuPROPion HCL XL 150 MG ER TABLET PO SCH (08:43)
[2019-10-05] MEDS: OLANZapine 5 MG TABLET PO SCH ×2 (08:43→16:35)
[2019-10-05] MEDS: MULTIVITAMINS WITH MINERALS, THERAPEUTIC TABLET PO SCH (08:43)
[2019-10-05] MEDS: ACAMPROSATE CALCIUM 333 MG DR TABLET PO SCH ×3 (08:44→16:35)
[2019-10-05] MEDS: FOLIC ACID 1 MG TABLET PO SCH (08:44)
[2019-10-05 08:58] VITALS: BP 102/72
[2019-10-05] MEDS: HydrOXYzine PAMOATE 50 MG CAPSULE PO PRN (10:07)
[2019-10-05] MEDS: GABAPENTIN 400 MG CAPSULE PO SCH ×3 (12:20→20:07)
[2019-10-05 17:50] VITALS: BP 119/69
[2019-10-06 03:13] VITALS: BP 114/72
[2019-10-06] MEDS: HydrOXYzine PAMOATE 50 MG CAPSULE PO PRN (05:43)
[2019-10-06] MEDS: HALOPERIDOL 5 MG TABLET PO PRN (05:43)
[2019-10-06 08:33] VITALS: BP 128/93
[2019-10-06] MEDS: GABAPENTIN 400 MG CAPSULE PO SCH ×4 (08:40→20:08)
[2019-10-06] MEDS: MULTIVITAMINS WITH MINERALS, THERAPEUTIC TABLET PO SCH (08:40)
[2019-10-06] MEDS: THIAMINE HCL 100 MG TABLET PO SCH ×2 (08:40→16:32)
[2019-10-06] MEDS: FOLIC ACID 1 MG TABLET PO SCH (08:40)
[2019-10-06] MEDS: DULoxetine HCL 20 MG CAPSULE PO SCH (08:40)
[2019-10-06] MEDS: METHADONE HCL 10 MG TABLET PO SCH (08:40)
[2019-10-06] MEDS: OLANZapine 5 MG TABLET PO SCH ×2 (08:41→16:32)
[2019-10-06] MEDS: ACAMPROSATE CALCIUM 333 MG DR TABLET PO SCH ×3 (08:41→16:32)
[2019-10-06 16:00] VITALS: BP 119/70
[2019-10-07] MEDS: ACAMPROSATE CALCIUM 333 MG DR TABLET PO SCH ×3 (09:08→16:45)
[2019-10-07] MEDS: DULoxetine HCL 20 MG CAPSULE PO SCH (09:09)
[2019-10-07] MEDS: THIAMINE HCL 100 MG TABLET PO SCH ×2 (09:10→16:45)
[2019-10-07] MEDS: METHADONE HCL 10 MG TABLET PO SCH (09:10)
[2019-10-07] MEDS: MULTIVITAMINS WITH MINERALS, THERAPEUTIC TABLET PO SCH (09:11)
[2019-10-07] MEDS: OLANZapine 5 MG TABLET PO SCH ×2 (09:11→16:45)
[2019-10-07] MEDS: FOLIC ACID 1 MG TABLET PO SCH (09:11)
[2019-10-07] MEDS: GABAPENTIN 400 MG CAPSULE PO SCH ×4 (09:11→20:19)
[2019-10-07 09:43] VITALS: BP 134/82
[2019-10-07] MEDS: HALOPERIDOL 5 MG TABLET PO PRN ×2 (10:01→17:06)
[2019-10-07] MEDS: HydrOXYzine PAMOATE 50 MG CAPSULE PO PRN ×2 (11:26→17:06)
[2019-10-07 17:09] VITALS: BP 130/74
[2019-10-07] MEDS: ZOLPIDEM TARTRATE 10 MG TABLET PO PRN (20:19)
[2019-10-08 08:00] VITALS: BP 121/71
[2019-10-08] MEDS: MULTIVITAMINS WITH MINERALS, THERAPEUTIC TABLET PO SCH (09:11)
[2019-10-08] MEDS: GABAPENTIN 400 MG CAPSULE PO SCH ×2 (09:11→13:11)
[2019-10-08] MEDS: ACAMPROSATE CALCIUM 333 MG DR TABLET PO SCH ×3 (09:12→17:19)
[2019-10-08] MEDS: THIAMINE HCL 100 MG TABLET PO SCH ×2 (09:12→17:19)
[2019-10-08] MEDS: FOLIC ACID 1 MG TABLET PO SCH (09:12)
[2019-10-08] MEDS: OLANZapine 5 MG TABLET PO SCH ×2 (09:12→17:23)
[2019-10-08] MEDS: DULoxetine HCL 20 MG CAPSULE PO SCH (09:12)
[2019-10-08] MEDS: METHADONE HCL 10 MG TABLET PO SCH (09:13)
[2019-10-08] MEDS: HydrOXYzine PAMOATE 50 MG CAPSULE PO PRN (10:00)
[2019-10-08] MEDS: HALOPERIDOL 5 MG TABLET PO PRN ×2 (10:00→17:20)
[2019-10-08] MEDS: GABAPENTIN 300 MG CAPSULE PO SCH ×3 (17:20→21:50)
[2019-10-08 19:39] VITALS: BP 129/75
[2019-10-09] MEDS: HALOPERIDOL 5 MG TABLET PO PRN (05:46)
[2019-10-09 06:50] VITALS: BP 104/78
[2019-10-09] MEDS: HydrOXYzine PAMOATE 50 MG CAPSULE PO PRN ×2 (06:53→11:54)
[2019-10-09 08:00] VITALS: BP 136/76
[2019-10-09] MEDS: METHADONE HCL 10 MG TABLET PO SCH (08:14)
[2019-10-09] MEDS: THIAMINE HCL 100 MG TABLET PO SCH ×2 (08:14→17:37)
[2019-10-09] MEDS: OLANZapine 5 MG TABLET PO SCH ×3 (08:14→17:37)
[2019-10-09] MEDS: GABAPENTIN 300 MG CAPSULE PO SCH ×4 (08:14→20:32)
[2019-10-09] MEDS: FOLIC ACID 1 MG TABLET PO SCH (08:15)
[2019-10-09] MEDS: DULoxetine HCL 30 MG CAPSULE PO SCH (08:15)
[2019-10-09] MEDS: OMEPRAZOLE 20 MG CAPSULE PO PRN (08:15)
[2019-10-09] MEDS: MULTIVITAMINS WITH MINERALS, THERAPEUTIC TABLET PO SCH (08:15)
[2019-10-09] MEDS: ACAMPROSATE CALCIUM 333 MG DR TABLET PO SCH ×3 (08:17→17:38)
[2019-10-09 19:04] VITALS: BP 127/77
[2019-10-09] MEDS: ChlorproMAZINE HCL 50 MG TABLET PO SCH (23:20)
[2019-10-10] MEDS: ChlorproMAZINE HCL 50 MG TABLET PO SCH ×3 (08:03→20:12)
[2019-10-10] MEDS: DULoxetine HCL 30 MG CAPSULE PO SCH (08:03)
[2019-10-10] MEDS: ACAMPROSATE CALCIUM 333 MG DR TABLET PO SCH ×3 (08:03→16:41)
[2019-10-10] MEDS: THIAMINE HCL 100 MG TABLET PO SCH ×2 (08:04→16:40)
[2019-10-10] MEDS: FOLIC ACID 1 MG TABLET PO SCH (08:04)
[2019-10-10] MEDS: GABAPENTIN 300 MG CAPSULE PO SCH ×4 (08:04→20:12)
[2019-10-10] MEDS: OLANZapine 5 MG TABLET PO SCH ×3 (08:04→16:40)
[2019-10-10] MEDS: METHADONE HCL 10 MG TABLET PO SCH (08:04)
[2019-10-10] MEDS: MULTIVITAMINS WITH MINERALS, THERAPEUTIC TABLET PO SCH (08:04)
[2019-10-10 09:06] VITALS: BP 137/75
[2019-10-10 18:26] VITALS: BP 131/79
[2019-10-11 06:55] VITALS: BP 108/69
[2019-10-11] MEDS: IBUPROFEN 600 MG TABLET PO PRN ×2 (07:00→15:50)
[2019-10-11 08:00] VITALS: BP 132/86
[2019-10-11] MEDS: GABAPENTIN 300 MG CAPSULE PO SCH (08:01)
[2019-10-11] MEDS: MULTIVITAMINS WITH MINERALS, THERAPEUTIC TABLET PO SCH (08:01)
[2019-10-11] MEDS: THIAMINE HCL 100 MG TABLET PO SCH ×2 (08:01→16:38)
[2019-10-11] MEDS: METHADONE HCL 10 MG TABLET PO SCH (08:01)
[2019-10-11] MEDS: ChlorproMAZINE HCL 50 MG TABLET PO SCH (08:02)
[2019-10-11] MEDS: ACAMPROSATE CALCIUM 333 MG DR TABLET PO SCH ×3 (08:02→16:38)
[2019-10-11] MEDS: FOLIC ACID 1 MG TABLET PO SCH (08:02)
[2019-10-11] MEDS: DULoxetine HCL 30 MG CAPSULE PO SCH (08:02)
[2019-10-11] MEDS: OLANZapine 5 MG TABLET PO SCH (08:02)
[2019-10-11] MEDS ORDERED: ChlorproMAZINE HCL 100 MG TABLET PO PRN (12:30)
[2019-10-11] MEDS: GABAPENTIN 400 MG CAPSULE PO SCH ×3 (13:18→20:18)
[2019-10-11 16:02] VITALS: BP 114/76
[2019-10-11] MEDS ORDERED: ChlorproMAZINE HCL 50 MG TABLET PO SCH (17:00)
[2019-10-11] MEDS: ChlorproMAZINE HCL 100 MG TABLET PO SCH (20:22)
[2019-10-12] MEDS: IBUPROFEN 600 MG TABLET PO PRN ×3 (06:57→19:05)
[2019-10-12] MEDS: METHADONE HCL 10 MG TABLET PO SCH (08:44)
[2019-10-12] MEDS: MULTIVITAMINS WITH MINERALS, THERAPEUTIC TABLET PO SCH (08:44)
[2019-10-12] MEDS: GABAPENTIN 400 MG CAPSULE PO SCH ×4 (08:45→20:46)
[2019-10-12] MEDS: THIAMINE HCL 100 MG TABLET PO SCH ×2 (08:45→16:14)
[2019-10-12] MEDS: DULoxetine HCL 60 MG CAPSULE PO SCH (08:45)
[2019-10-12] MEDS: ACAMPROSATE CALCIUM 333 MG DR TABLET PO SCH ×3 (08:45→16:13)
[2019-10-12] MEDS: FOLIC ACID 1 MG TABLET PO SCH (08:45)
[2019-10-12] MEDS: ChlorproMAZINE HCL 100 MG TABLET PO SCH ×3 (08:46→20:47)
[2019-10-12 08:49] VITALS: BP 103/65
[2019-10-12] MEDS ORDERED: DULoxetine HCL 20 MG CAPSULE PO SCH (09:00)
[2019-10-12] MEDS: HALOPERIDOL 5 MG TABLET PO PRN (15:37)
[2019-10-12 16:19] VITALS: BP 107/64
[2019-10-13] MEDS: THIAMINE HCL 100 MG TABLET PO SCH ×2 (07:54→16:06)
[2019-10-13] MEDS: ACAMPROSATE CALCIUM 333 MG DR TABLET PO SCH ×3 (07:54→16:06)
[2019-10-13] MEDS: IBUPROFEN 600 MG TABLET PO PRN (07:54)
[2019-10-13] MEDS: GABAPENTIN 400 MG CAPSULE PO SCH ×4 (07:55→20:51)
[2019-10-13] MEDS: DULoxetine HCL 60 MG CAPSULE PO SCH (07:55)
[2019-10-13] MEDS: METHADONE HCL 10 MG TABLET PO SCH (07:55)
[2019-10-13] MEDS: MULTIVITAMINS WITH MINERALS, THERAPEUTIC TABLET PO SCH (07:55)
[2019-10-13] MEDS: FOLIC ACID 1 MG TABLET PO SCH (07:55)
[2019-10-13] MEDS: ChlorproMAZINE HCL 100 MG TABLET PO SCH ×3 (07:57→21:02)
[2019-10-13] MEDS: TraZODone HCL 50 MG TABLET PO SCH ×3 (07:57→16:06)
[2019-10-13 08:01] VITALS: BP 120/72
[2019-10-13] MEDS: HALOPERIDOL 5 MG TABLET PO PRN ×2 (11:23→17:04)
[2019-10-13 17:05] VITALS: BP 107/65
[2019-10-14] VITALS (7 sets, daily range): BP systolic 112–122; BP diastolic 60–75
[2019-10-14] MEDS: METHADONE HCL 10 MG TABLET PO SCH (08:45)
[2019-10-14] MEDS: ChlorproMAZINE HCL 100 MG TABLET PO SCH ×3 (08:45→20:22)
[2019-10-14] MEDS: MULTIVITAMINS WITH MINERALS, THERAPEUTIC TABLET PO SCH (08:47)
[2019-10-14] MEDS: THIAMINE HCL 100 MG TABLET PO SCH (08:47)
[2019-10-14] MEDS: ACAMPROSATE CALCIUM 333 MG DR TABLET PO SCH ×3 (08:47→16:09)
[2019-10-14] MEDS: FOLIC ACID 1 MG TABLET PO SCH (08:47)
[2019-10-14] MEDS: GABAPENTIN 400 MG CAPSULE PO SCH ×4 (08:48→20:22)
[2019-10-14] MEDS: TraZODone HCL 50 MG TABLET PO SCH ×3 (08:49→16:10)
[2019-10-14] MEDS: DULoxetine HCL 60 MG CAPSULE PO SCH (08:52)
[2019-10-14] MEDS: IBUPROFEN 600 MG TABLET PO PRN (09:53)
[2019-10-14] MEDS ORDERED: CloNIDine HCL 0.1 MG TABLET PO PRN (16:30)
[2019-10-14] MEDS ORDERED: IBUPROFEN 600 MG TABLET PO PRN (16:30)
[2019-10-14] MEDS ORDERED: MAG HYDROX/AL HYDROX/SIMETH ES 30 ML SUSPENSION UDCUP PO PRN (16:30)
[2019-10-14] MEDS: CloNIDine HCL 0.1 MG TABLET PO SCH ×3 (17:55→21:12)
[2019-10-14] MEDS: ClonazePAM 0.5 MG TABLET PO SCH (17:55)
[2019-10-15 06:28] VITALS: BP 118/63
[2019-10-15] MEDS: CloNIDine HCL 0.1 MG TABLET PO SCH ×5 (06:28→21:28)
[2019-10-15 06:38] VITALS: BP 118/63
[2019-10-15 08:00] VITALS: BP 103/63
[2019-10-15] MEDS: ClonazePAM 0.5 MG TABLET PO SCH ×4 (08:11→17:56)
[2019-10-15] MEDS: ChlorproMAZINE HCL 100 MG TABLET PO SCH ×3 (08:11→20:21)
[2019-10-15] MEDS: ACAMPROSATE CALCIUM 333 MG DR TABLET PO SCH ×3 (08:11→16:25)
[2019-10-15] MEDS: DULoxetine HCL 60 MG CAPSULE PO SCH (08:11)
[2019-10-15] MEDS: GABAPENTIN 400 MG CAPSULE PO SCH ×4 (08:11→20:21)
[2019-10-15] MEDS: MULTIVITAMINS WITH MINERALS, THERAPEUTIC TABLET PO SCH (08:11)
[2019-10-15] MEDS: TraZODone HCL 50 MG TABLET PO SCH ×3 (08:12→16:25)
[2019-10-15] MEDS: HydrOXYzine PAMOATE 50 MG CAPSULE PO PRN (09:32)
[2019-10-15 16:25] VITALS: BP 87/62
[2019-10-15 17:45] VITALS: BP 122/65
[2019-10-16] MEDS: CloNIDine HCL 0.1 MG TABLET PO SCH ×4 (06:00→22:00)
[2019-10-16 06:19] VITALS: BP 97/57
[2019-10-16 08:00] VITALS: BP 100/69
[2019-10-16] MEDS: GABAPENTIN 400 MG CAPSULE PO SCH ×4 (09:14→21:00)
[2019-10-16] MEDS: MULTIVITAMINS WITH MINERALS, THERAPEUTIC TABLET PO SCH (09:14)
[2019-10-16] MEDS: TraZODone HCL 50 MG TABLET PO SCH ×3 (09:14→17:00)
[2019-10-16] MEDS: ACAMPROSATE CALCIUM 333 MG DR TABLET PO SCH ×3 (09:14→16:58)
[2019-10-16] MEDS: ChlorproMAZINE HCL 100 MG TABLET PO SCH ×3 (09:14→21:00)
[2019-10-16] MEDS: DULoxetine HCL 60 MG CAPSULE PO SCH (09:14)
[2019-10-16] MEDS: ClonazePAM 0.5 MG TABLET PO SCH ×3 (09:15→16:59)
[2019-10-16 12:20] VITALS: BP 106/64
[2019-10-16 12:45] VITALS: BP 106/60
[2019-10-16 17:00] VITALS: BP 101/64
[2019-10-17 03:55] VITALS: BP 89/58
[2019-10-17] MEDS: CloNIDine HCL 0.1 MG TABLET PO SCH ×4 (06:00→21:37)
[2019-10-17 06:45] VITALS: BP 117/70
[2019-10-17 08:05] VITALS: BP 124/49
[2019-10-17] MEDS: ACAMPROSATE CALCIUM 333 MG DR TABLET PO SCH ×3 (08:10→17:22)
[2019-10-17] MEDS: DULoxetine HCL 60 MG CAPSULE PO SCH (08:10)
[2019-10-17] MEDS: MULTIVITAMINS WITH MINERALS, THERAPEUTIC TABLET PO SCH (08:10)
[2019-10-17] MEDS: IBUPROFEN 600 MG TABLET PO PRN (08:10)
[2019-10-17] MEDS: TraZODone HCL 50 MG TABLET PO SCH ×3 (08:11→17:22)
[2019-10-17] MEDS: GABAPENTIN 400 MG CAPSULE PO SCH ×4 (08:11→21:37)
[2019-10-17] MEDS: ChlorproMAZINE HCL 100 MG TABLET PO SCH ×3 (08:11→21:36)
[2019-10-17] MEDS: ClonazePAM 0.5 MG TABLET PO SCH ×3 (08:11→17:22)
[2019-10-17] MEDS: HydrOXYzine PAMOATE 50 MG CAPSULE PO PRN (10:02)
[2019-10-17 11:44] VITALS: BP 116/62
[2019-10-17 16:07] VITALS: BP 109/46
[2019-10-17 21:35] VITALS: BP 112/70
[2019-10-18 05:03] VITALS: BP 106/64
[2019-10-18] MEDS: CloNIDine HCL 0.1 MG TABLET PO SCH ×4 (06:00→21:12)
[2019-10-18 07:31] VITALS: BP 101/58
[2019-10-18] MEDS: MULTIVITAMINS WITH MINERALS, THERAPEUTIC TABLET PO SCH (08:40)
[2019-10-18] MEDS: DULoxetine HCL 60 MG CAPSULE PO SCH (08:40)
[2019-10-18] MEDS: ACAMPROSATE CALCIUM 333 MG DR TABLET PO SCH ×3 (08:40→16:01)
[2019-10-18] MEDS: ClonazePAM 0.5 MG TABLET PO SCH ×3 (08:40→16:02)
[2019-10-18] MEDS: OMEPRAZOLE 20 MG CAPSULE PO PRN (08:40)
[2019-10-18] MEDS: ChlorproMAZINE HCL 100 MG TABLET PO SCH ×3 (08:40→20:33)
[2019-10-18] MEDS: GABAPENTIN 400 MG CAPSULE PO SCH ×4 (08:41→20:34)
[2019-10-18] MEDS: TraZODone HCL 50 MG TABLET PO SCH ×3 (08:42→16:01)
[2019-10-18 08:43] VITALS: BP 119/58
[2019-10-18] MEDS: IBUPROFEN 600 MG TABLET PO PRN (16:06)
[2019-10-18 16:07] VITALS: BP 110/80
[2019-10-18] MEDS: BACITRACIN 28.4 GM OINTMENT TP SCH (20:05)
[2019-10-19 05:41] VITALS: BP 112/55
[2019-10-19] MEDS: CloNIDine HCL 0.1 MG TABLET PO SCH ×2 (06:00→12:00)
[2019-10-19 06:25] VITALS: BP 146/67
[2019-10-19] MEDS: IBUPROFEN 600 MG TABLET PO PRN ×2 (06:30→12:25)
[2019-10-19] MEDS: GABAPENTIN 400 MG CAPSULE PO SCH ×4 (08:20→20:24)
[2019-10-19] MEDS: MULTIVITAMINS WITH MINERALS, THERAPEUTIC TABLET PO SCH (08:20)
[2019-10-19] MEDS: TraZODone HCL 50 MG TABLET PO SCH ×3 (08:20→16:00)
[2019-10-19] MEDS: METHADONE HCL 10 MG TABLET PO SCH (08:20)
[2019-10-19] MEDS: DULoxetine HCL 60 MG CAPSULE PO SCH (08:20)
[2019-10-19] MEDS: ChlorproMAZINE HCL 100 MG TABLET PO SCH ×3 (08:21→20:24)
[2019-10-19] MEDS: BACITRACIN 28.4 GM OINTMENT TP SCH (08:21)
[2019-10-19] MEDS: ACAMPROSATE CALCIUM 333 MG DR TABLET PO SCH ×3 (08:23→16:00)
[2019-10-19 10:50] VITALS: BP 101/60
[2019-10-19] MEDS ORDERED: CloNIDine HCL 0.1 MG TABLET PO PRN (14:00)
[2019-10-19 16:24] VITALS: BP 110/71
[2019-10-19] MEDS: HALOPERIDOL 5 MG TABLET PO PRN (17:00)
[2019-10-19] MEDS ORDERED: ACAM333T7 PO (17:33)
[2019-10-19] MEDS ORDERED: DULO60CA44 PO (17:33)
[2019-10-19] MEDS ORDERED: TRAZ-252 PO (17:33)
[2019-10-19] MEDS ORDERED: CHLO100T23 PO (17:33)
[2019-10-19] MEDS ORDERED: GABA-533 PO (17:33)
[2019-10-20] MEDS: IBUPROFEN 600 MG TABLET PO PRN (06:29)
[2019-10-20 08:00] VITALS: BP 138/65
[2019-10-20] MEDS: METHADONE HCL 10 MG TABLET PO SCH (08:16)
[2019-10-20] MEDS: DULoxetine HCL 60 MG CAPSULE PO SCH (08:17)
[2019-10-20] MEDS: ACAMPROSATE CALCIUM 333 MG DR TABLET PO SCH ×2 (08:17→12:25)
[2019-10-20] MEDS: MULTIVITAMINS WITH MINERALS, THERAPEUTIC TABLET PO SCH (08:17)
[2019-10-20] MEDS: TraZODone HCL 50 MG TABLET PO SCH ×2 (08:17→12:25)
[2019-10-20] MEDS: GABAPENTIN 400 MG CAPSULE PO SCH ×2 (08:17→12:25)
[2019-10-20] MEDS: ChlorproMAZINE HCL 100 MG TABLET PO SCH ×2 (08:17→09:00)
[2019-10-20] MEDS: BACITRACIN 28.4 GM OINTMENT TP SCH (12:21)
[2019-10-20] MEDS: HALOPERIDOL 5 MG TABLET PO PRN (13:06)
[2019-10-20] MEDS ORDERED: MULT-1239 PO (13:37)
== END 2019-10-20 16:15 | disposition home or self-care (01) | DRG 885 ==
LOC: EMS 13:54 → 3EI 18:53 → 3EC 10-06 14:59
PROVIDERS: ADMIT Psychiatry & Neurology Psychiatry; ATTEND Psychiatry & Neurology Psychiatry
DX: F25.0 Schizoaffective disorder, bipolar type (principal); F11.20 Opioid dependence, uncomplicated; R45.851 Suicidal ideations; F15.20 Other stimulant dependence, uncomplicated; F41.9 Anxiety disorder, unspecified; F32.9 Major depressive disorder, single episode, unspecified; F17.210 Nicotine dependence, cigarettes, uncomplicated; J44.9 Chronic obstructive pulmonary disease, unspecified; I10 Essential (primary) hypertension; I73.9 Peripheral vascular disease, unspecified; M54.9 Dorsalgia, unspecified; K21.9 Gastro-esophageal reflux disease without esophagitis; F10.10 Alcohol abuse, uncomplicated; Y90.6 Blood alcohol level of 120-199 mg/100 ml; Z59.0 Homelessness; Z88.2 Allergy status to sulfonamides; Z28.21 Immunization not carried out because of patient refusal
CPT/HCPCS: 83036; 84439; 84443; 87081; G0480

== ENCOUNTER 2019-12-13 19:17 | Inpatient (IN) | payer MEDICAID, OTHER ==
[~2019-12-13] VITALS: Ht 193 cm; Wt 105.3 kg
[~2019-12-13 19:17] MED LIST changes: +ACAM333T7 PO; -BUPR-93 PO; +CHLO100T23 PO; +DULO60CA44 PO; +GABA-533 PO; +METH10 PO; +MULT-1239 PO; -OLAN5TAB2 PO; -SUCR1TAB28 PO; +TRAZ-252 PO
[2019-12-13 23:20] LABS: BASOPHILS % (AUTO) 0.8 % (0.0-2.0); EOSINOPHILS % (AUTO) 4.1 % (1.0-6.0); HEMATOCRIT 40.7 % (41-53); HEMOGLOBIN 13.6 g/dL (13.5-17.5); LYMPHOCYTES # (AUTO) 3.3 K/uL (1.0-4.8); LYMPHOCYTES % (AUTO) 44.8 % (22.0-44.0); MEAN CORPUSCULAR HEMOGLOBIN 30.3 pg (26.0-34.0); MEAN CORPUSCULAR HGB CONC 33.3 G/dL (31.0-37.0); MEAN CORPUSCULAR VOLUME 91 fL (80-100); MONOCYTES # (AUTO) 0.8 K/uL (0.1-1.0); MONOCYTES % (AUTO) 10.2 % (2.0-9.0); NEUTROPHILS % (AUTO) 40.1 % (40.0-70.0); PLATELET COUNT (AUTO) 188 K/uL (150-450); RED BLOOD CELL COUNT(AUTO) 4.47 MIL/uL (4.50-5.90); RED CELL DISTRIBUTION WIDTH 14.3 % (11.5-14.5)
[2019-12-13 23:30] LABS: ANION GAP 9 mmol/L (8-16); CALCIUM, TOTAL 9.2 mg/dL (8.8-10.5); CARBON DIOXIDE 28 mmol/L (22-29); CHLORIDE 109 mmol/L (98-107); CREATININE 0.72 mg/dL (0.60-1.30); GLOMERULAR FILTR. RATE CALC > 60 mL/min (>60); GLUCOSE,RANDOM 94 mg/dL (70-110); POTASSIUM 4.3 mmol/L (3.5-5.1); SODIUM SERUM 146 mmol/L (136-145); UREA NITROGEN, BLOOD 21 mg/dL (7-18)
[2019-12-13 23:34] LABS: ALANINE AMINOTRANSFERASE 33 U/L (12-78); ALKALINE PHOSPHATASE 70 U/L (46-116); ASPARTATE AMINOTRANSFERASE 17 U/L (15-37); BILIRUBIN,TOTAL 0.3 mg/dL (0.1-1.0); TOTAL PROTEIN, SERUM 7.4 g/dL (6.4-8.2)
[2019-12-14 01:00] LABS: AMPHET/METH SCREEN,URINE NEGATIVE (NEGATIVE); BARBITURATE SCREEN, URINE NEGATIVE (NEGATIVE); BENZODIAZEPINES SCREEN,URINE NEGATIVE (NEGATIVE); CANNABINOID SCREEN,URINE NEGATIVE (NEGATIVE); COCAINE SCREEN,URINE NEGATIVE (NEGATIVE); METHADONE SCREEN, URINE POSITIVE (NEGATIVE); OPIATE SCREEN,URINE NEGATIVE (NEGATIVE)
[2019-12-14 01:01] LABS: PHENCYCLIDINE SCREEN,URINE NEGATIVE (NEGATIVE)
[2019-12-14 04:50] VITALS: BP 124/76
[2019-12-14] MEDS ORDERED: HALOPERIDOL 5 MG TABLET PO PRN (05:00)
[2019-12-14] MEDS ORDERED: ZOLPIDEM TARTRATE 10 MG TABLET PO PRN (05:00)
[2019-12-14] MEDS: LORazepam 2 MG TABLET PO PRN ×3 (05:24→14:07)
[2019-12-14] MEDS ORDERED: LOPERAMIDE HCL 2 MG CAPSULE PO PRN ×2 (07:45→15:45)
[2019-12-14] MEDS ORDERED: IBUPROFEN 400 MG TABLET PO PRN (07:45)
[2019-12-14] MEDS ORDERED: CloNIDine HCL 0.1 MG TABLET PO PRN (07:45)
[2019-12-14] MEDS ORDERED: PETROLATUM,WHITE 28 GM JELLY TP PRN (07:45)
[2019-12-14] MEDS ORDERED: ONDANSETRON HCL 4 MG TABLET PO PRN (07:45)
[2019-12-14] MEDS ORDERED: ALBUTEROL SULFATE HFA 90 MCG/PUFF 8 GM INHALER IH PRN (07:45)
[2019-12-14] MEDS ORDERED: DOCUSATE SODIUM 100 MG CAPSULE PO PRN (07:45)
[2019-12-14] MEDS ORDERED: ACETAMINOPHEN 325 MG TABLET PO PRN ×2 (07:45→15:45)
[2019-12-14] MEDS ORDERED: MAG HYDROX/AL HYDROX/SIMETH ES 30 ML SUSPENSION UDCUP PO PRN ×2 (07:45→15:45)
[2019-12-14] MEDS ORDERED: NICOTINE 14 MG/24 HOUR PATCH TD PRN (07:45)
[2019-12-14] MEDS ORDERED: GuaiFENesin/D-METHORPHAN [SUGAR-FREE] 200-20MG/10 ML SYRUP UDCUP PO PRN ×2 (07:45→15:45)
[2019-12-14] MEDS ORDERED: MAGNESIUM HYDROXIDE SUSPENSION 30 ML UDCUP PO PRN ×2 (07:45→15:45)
[2019-12-14 08:20] VITALS: BP 119/74
[2019-12-14] MEDS: METHADONE HCL 10 MG TABLET PO SCH (08:52)
[2019-12-14] MEDS ORDERED: METHADONE HCL 10 MG TABLET PO SCH (11:00)
[2019-12-14] MEDS ORDERED: HydrOXYzine PAMOATE 50 MG CAPSULE PO PRN (15:45)
[2019-12-14] MEDS ORDERED: PROMETHAZINE HCL 25 MG TABLET PO PRN (15:45)
[2019-12-14] MEDS ORDERED: TUBERCULIN, PURIFIED PROTEIN DERIVATIVE 5 TU/0.1 ML SYRINGE ID ONE (15:45)
[2019-12-14] MEDS ORDERED: ChlorproMAZINE HCL 100 MG TABLET PO PRN (15:45)
[2019-12-14 16:43] VITALS: BP 125/78
[2019-12-14] MEDS: THIAMINE 100 MG TABLET PO SCH (17:00)
[2019-12-14] MEDS: ChlorproMAZINE HCL 25 MG TABLET PO SCH (17:00)
[2019-12-14] MEDS: ACAMPROSATE CALCIUM 333 MG DR TABLET PO SCH (19:53)
[2019-12-14] MEDS: GABAPENTIN 300 MG CAPSULE PO SCH ×2 (19:54→21:29)
[2019-12-14] MEDS: TraZODone HCL 100 MG TABLET PO SCH (21:00)
[2019-12-15 08:30] LABS: CHOL/HDL RATIO 2.1 (4.2-7.3); FREE T4 (FREE THYROXINE) 0.96 ng/dL (0.76-1.46); THYROID STIMULATING HORMONE 3.72 uIU/mL (0.36-3.74)
[2019-12-15 08:39] LABS: HEMOGLOBIN A1C 5.7 % (3.8-5.6)
[2019-12-15] MEDS: ACAMPROSATE CALCIUM 333 MG DR TABLET PO SCH ×3 (09:05→16:48)
[2019-12-15] MEDS: DULoxetine HCL 20 MG CAPSULE PO SCH (09:06)
[2019-12-15] MEDS: GABAPENTIN 300 MG CAPSULE PO SCH ×2 (09:06→13:04)
[2019-12-15] MEDS: THIAMINE 100 MG TABLET PO SCH ×2 (09:06→16:46)
[2019-12-15] MEDS: FOLIC ACID 1 MG TABLET PO SCH (09:06)
[2019-12-15] MEDS: MULTIVITAMINS WITH MINERALS, THERAPEUTIC TABLET PO SCH (09:06)
[2019-12-15] MEDS: ChlorproMAZINE HCL 25 MG TABLET PO SCH ×2 (09:07→13:00)
[2019-12-15] MEDS: METHADONE HCL 10 MG TABLET PO SCH (09:17)
[2019-12-15 09:24] VITALS: BP 107/66
[2019-12-15] MEDS ORDERED: ACAM333T7 PO (14:44)
[2019-12-15] MEDS ORDERED: DULO20CA30 PO (14:44)
[2019-12-15] MEDS ORDERED: GABA-1201 PO (14:44)
[2019-12-15] MEDS ORDERED: CHLO50TA41 PO (14:44)
[2019-12-15] MEDS ORDERED: TRAZ-257 PO (14:44)
[2019-12-15 16:26] VITALS: BP 116/72
[2019-12-15] MEDS: GABAPENTIN 400 MG CAPSULE PO SCH ×2 (16:45→21:35)
[2019-12-15] MEDS: ChlorproMAZINE HCL 50 MG TABLET PO SCH (16:45)
[2019-12-15] MEDS: TraZODone HCL 100 MG TABLET PO SCH (21:00)
[2019-12-16 06:08] VITALS: BP 107/67
[2019-12-16] MEDS: MULTIVITAMINS WITH MINERALS, THERAPEUTIC TABLET PO SCH (08:06)
[2019-12-16] MEDS: GABAPENTIN 400 MG CAPSULE PO SCH (08:06)
[2019-12-16] MEDS: ChlorproMAZINE HCL 50 MG TABLET PO SCH ×2 (08:06→09:00)
[2019-12-16] MEDS: METHADONE HCL 10 MG TABLET PO SCH (08:06)
[2019-12-16] MEDS: DULoxetine HCL 20 MG CAPSULE PO SCH ×2 (08:07→09:00)
[2019-12-16] MEDS: FOLIC ACID 1 MG TABLET PO SCH (08:07)
[2019-12-16] MEDS: THIAMINE 100 MG TABLET PO SCH (08:07)
[2019-12-16] MEDS: ACAMPROSATE CALCIUM 333 MG DR TABLET PO SCH (09:00)
== END 2019-12-16 13:06 | disposition home or self-care (01) | DRG 753 ==
LOC: EMS 19:18 → B3A 12-14 03:00
PROVIDERS: ADMIT Psychiatry & Neurology Psychiatry; ATTEND Psychiatry & Neurology Psychiatry
DX: F31.9 Bipolar disorder, unspecified (principal); E87.0 Hyperosmolality and hypernatremia; R45.851 Suicidal ideations; G89.29 Other chronic pain; Z95.0 Presence of cardiac pacemaker; Z91.5 Personal history of self-harm; Z88.2 Allergy status to sulfonamides; M54.9 Dorsalgia, unspecified; F41.9 Anxiety disorder, unspecified; F17.200 Nicotine dependence, unspecified, uncomplicated; F11.20 Opioid dependence, uncomplicated; K21.9 Gastro-esophageal reflux disease without esophagitis; I10 Essential (primary) hypertension; J44.9 Chronic obstructive pulmonary disease, unspecified; K22.70 Barrett's esophagus without dysplasia; F20.9 Schizophrenia, unspecified; Z59.0 Homelessness
CPT/HCPCS: 83036; 84439; 84443; 86592; G0480

== ENCOUNTER 2020-01-16 23:22 | Emergency (ER) | payer MEDICAID, OTHER ==
[~2020-01-16] VITALS: Ht 193 cm; Wt 109.1 kg
[~2020-01-16 23:22] MED LIST changes: -CHLO100T23 PO; +CHLO50TA41 PO; +DULO20CA30 PO; -DULO60CA44 PO; +GABA-1201 PO; -GABA-533 PO; -METH10 PO; -MULT-1239 PO; -TRAZ-252 PO; +TRAZ-257 PO
[2020-01-17 00:23] LABS: BASOPHILS % (AUTO) 0.9 % (0.0-2.0); EOSINOPHILS % (AUTO) 1.2 % (1.0-6.0); HEMOGLOBIN 12.7 g/dL (13.5-17.5); LYMPHOCYTES % (AUTO) 35.9 % (22.0-44.0); MEAN CORPUSCULAR HEMOGLOBIN 30.2 pg (26.0-34.0); MEAN CORPUSCULAR HGB CONC 33.4 G/dL (31.0-37.0); MEAN CORPUSCULAR VOLUME 90 fL (80-100); MONOCYTES # (AUTO) 0.7 K/uL (0.1-1.0); MONOCYTES % (AUTO) 12.5 % (2.0-9.0); NEUTROPHILS # (AUTO) 2.7 K/uL (1.8-7.7); NEUTROPHILS % (AUTO) 49.5 % (40.0-70.0); PLATELET COUNT (AUTO) 295 K/uL (150-450); RED CELL DISTRIBUTION WIDTH 13.9 % (11.5-14.5)
[2020-01-17 00:33] LABS: ANION GAP 7 mmol/L (8-16); CARBON DIOXIDE 27 mmol/L (22-29); CHLORIDE 104 mmol/L (98-107); CREATININE 0.93 mg/dL (0.60-1.30); GLOMERULAR FILTR. RATE CALC > 60 mL/min (>60); GLUCOSE,RANDOM 86 mg/dL (70-110); SODIUM SERUM 138 mmol/L (136-145); UREA NITROGEN, BLOOD 13 mg/dL (7-18)
[2020-01-17 00:39] LABS: ALANINE AMINOTRANSFERASE 31 U/L (12-78); ALBUMIN 3.6 g/dL (3.4-5.0); ALKALINE PHOSPHATASE 93 U/L (46-116); ASPARTATE AMINOTRANSFERASE 21 U/L (15-37); BILIRUBIN,TOTAL 0.4 mg/dL (0.1-1.0); TOTAL PROTEIN, SERUM 7.7 g/dL (6.4-8.2)
[2020-01-17 02:33] LABS: AMPHET/METH SCREEN,URINE POSITIVE (NEGATIVE); BARBITURATE SCREEN, URINE NEGATIVE (NEGATIVE); BENZODIAZEPINES SCREEN,URINE POSITIVE (NEGATIVE); CANNABINOID SCREEN,URINE NEGATIVE (NEGATIVE); COCAINE SCREEN,URINE NEGATIVE (NEGATIVE); METHADONE SCREEN, URINE POSITIVE (NEGATIVE); OPIATE SCREEN,URINE POSITIVE (NEGATIVE); PHENCYCLIDINE SCREEN,URINE NEGATIVE (NEGATIVE)
[2020-01-17] MEDS ORDERED: ONDANSETRON HCL 4 MG/2 ML VIAL IVP PRN ×2 (05:00→08:30)
[2020-01-17] MEDS ORDERED: ACETAMINOPHEN 325 MG TABLET PO PRN ×2 (05:00→08:30)
[2020-01-17] MEDS ORDERED: 0.9% SODIUM CHLORIDE 10 ML SYRINGE IVP PRN (05:00)
[2020-01-17] MEDS ORDERED: ZOLPIDEM TARTRATE 5 MG TABLET PO PRN (08:30)
[2020-01-17] MEDS ORDERED: BISACODYL 10 MG RECTAL RECTAL SUPPOSITORY PR PRN (08:30)
[2020-01-17] MEDS ORDERED: MORPHINE SULFATE 2 MG/ML SYRINGE IVP PRN (08:30)
[2020-01-17] MEDS ORDERED: HYDROCODONE/ACETAMINOPHEN 5-325 MG TABLET PO PRN (08:30)
[2020-01-17] MEDS ORDERED: MAGNESIUM HYDROXIDE SUSPENSION 30 ML UDCUP PO PRN (08:30)
[2020-01-17] MEDS ORDERED: ChlorproMAZINE HCL 50 MG TABLET PO SCH (09:00)
[2020-01-17] MEDS ORDERED: AZITHROMYCIN 500 MG TABLET PO SCH (09:00)
[2020-01-17] MEDS ORDERED: GABAPENTIN 400 MG CAPSULE PO SCH (09:00)
[2020-01-17] MEDS ORDERED: DOCUSATE SODIUM 100 MG CAPSULE PO SCH (09:00)
[2020-01-17] MEDS ORDERED: DULoxetine HCL 20 MG CAPSULE PO SCH (09:00)
[2020-01-17] MEDS ORDERED: ACAMPROSATE CALCIUM 333 MG DR TABLET PO SCH (09:00)
[2020-01-17] MEDS ORDERED: PANTOPRAZOLE SODIUM 40 MG DR TABLET PO SCH (09:00)
[2020-01-17 10:57] VITALS: BP 115/76
[2020-01-17] MEDS ORDERED: HEPARIN SODIUM,PORCINE 5,000 UNITS/ML VIAL SQ SCH (16:00)
[2020-01-17] MEDS ORDERED: TraZODone HCL 100 MG TABLET PO SCH (21:00)
== END 2020-01-17 12:00 | disposition home or self-care (01) ==
LOC: EMS 23:22 → UNDOADMIN 01-17 08:21 → 6N 01-17 08:21 → EMS 01-17 12:00
DX: F20.9 Schizophrenia, unspecified (principal); Z20.828 Contact with and (suspected) exposure to other viral communicable diseases; F15.10 Other stimulant abuse, uncomplicated; I10 Essential (primary) hypertension; F17.210 Nicotine dependence, cigarettes, uncomplicated; F32.9 Major depressive disorder, single episode, unspecified; F11.90 Opioid use, unspecified, uncomplicated; Z59.0 Homelessness; Z88.2 Allergy status to sulfonamides; Z79.899 Other long term (current) drug therapy
CPT/HCPCS: 36415; 71045; 80053; 80307; 85025; 87430; 96374; 99285; G0480; J2405; U0003

== ENCOUNTER 2020-02-03 16:14 | Emergency (ER) | payer MEDICAID, OTHER ==
[~2020-02-03] VITALS: Ht 195.6 cm; Wt 90.9 kg
[~2020-02-03 16:14] MED LIST changes: +DULO20CA27 PO; -DULO20CA30 PO
[2020-02-03 18:46] VITALS: BP 112/77
== END 2020-02-03 20:10 | disposition home or self-care (01) ==
LOC: EMS 16:14
DX: F20.9 Schizophrenia, unspecified (principal); F41.9 Anxiety disorder, unspecified; F31.9 Bipolar disorder, unspecified; F17.210 Nicotine dependence, cigarettes, uncomplicated; F11.90 Opioid use, unspecified, uncomplicated; F19.90 Other psychoactive substance use, unspecified, uncomplicated; Z59.0 Homelessness; Z88.1 Allergy status to other antibiotic agents
CPT/HCPCS: Z7502

== ENCOUNTER 2021-03-25 09:20 | Emergency (ER) | payer OTHER ==
[~2021-03-25] VITALS: Ht 195.6 cm; Wt 113.6 kg
[~2021-03-25 09:20] MED LIST changes: -CHLO50TA41 PO; +CHLO50TA53 PO
[2021-03-25 09:43] VITALS: BP 120/64
== END 2021-03-25 09:59 | disposition home or self-care (01) ==
LOC: EMS 09:20
DX: T63.301A Toxic effect of unspecified spider venom, accidental (unintentional), initial encounter (principal); L03.115 Cellulitis of right lower limb; F31.9 Bipolar disorder, unspecified; F20.9 Schizophrenia, unspecified; F41.9 Anxiety disorder, unspecified; F11.90 Opioid use, unspecified, uncomplicated; F15.90 Other stimulant use, unspecified, uncomplicated; F17.210 Nicotine dependence, cigarettes, uncomplicated; Z88.2 Allergy status to sulfonamides; Z79.899 Other long term (current) drug therapy; Y92.89 Other specified places as the place of occurrence of the external cause
CPT/HCPCS: 99283

== ENCOUNTER 2021-04-10 08:50 | Inpatient (IN) | payer MEDICAID, OTHER ==
[~2021-04-10] VITALS: Ht 193 cm; Wt 127.9 kg
[2021-04-10] MEDS ORDERED: LORazepam 2 MG TABLET PO ONE (10:00)
[2021-04-10 10:11] LABS: BASOPHILS % (AUTO) 0.9 % (0.0-2.0); EOSINOPHILS % (AUTO) 0.9 % (1.0-6.0); HEMATOCRIT 42.3 % (41-53); HEMOGLOBIN 14.1 g/dL (13.5-17.5); LYMPHOCYTES # (AUTO) 1.2 K/uL (1.0-4.8); MEAN CORPUSCULAR HEMOGLOBIN 29.4 pg (26.0-34.0); MEAN CORPUSCULAR HGB CONC 33.4 G/dL (31.0-37.0); MEAN CORPUSCULAR VOLUME 88 fL (80-100); MONOCYTES # (AUTO) 0.4 K/uL (0.1-1.0); MONOCYTES % (AUTO) 7.1 % (2.0-9.0); NEUTROPHILS % (AUTO) 70.1 % (40.0-70.0); PLATELET COUNT (AUTO) 334 K/uL (150-450); RED CELL DISTRIBUTION WIDTH 14.6 % (11.5-14.5)
[2021-04-10 10:19] LABS: ANION GAP 10 mmol/L (8-16); CALCIUM, TOTAL 9.7 mg/dL (8.8-10.5); CARBON DIOXIDE 31 mmol/L (22-29); CHLORIDE 100 mmol/L (98-107); CREATININE 0.71 mg/dL (0.60-1.30); GLOMERULAR FILTR. RATE CALC > 60 mL/min (>60); GLUCOSE,RANDOM 121 mg/dL (70-110); POTASSIUM 4.5 mmol/L (3.5-5.1); SODIUM SERUM 141 mmol/L (136-145); UREA NITROGEN, BLOOD 8 mg/dL (7-18)
[2021-04-10 10:25] LABS: ALANINE AMINOTRANSFERASE 31 U/L (12-78); ALKALINE PHOSPHATASE 135 U/L (46-116); ASPARTATE AMINOTRANSFERASE 22 U/L (15-37); BILIRUBIN,TOTAL 0.5 mg/dL (0.1-1.0); LIPASE 36 U/L (73-393); TOTAL PROTEIN, SERUM 8.1 g/dL (6.4-8.2)
[2021-04-10 13:26] LABS: COVID AG,FIA SOURCE NASOPHARYNGEAL
[2021-04-10] MEDS ORDERED: QUEtiapine FUMARATE 100 MG TABLET PO ONE (14:00)
[2021-04-10] MEDS ORDERED: ZOLPIDEM TARTRATE 10 MG TABLET PO PRN (14:45)
[2021-04-10 17:47] LABS: AMPHET/METH SCREEN,URINE POSITIVE (NEGATIVE); BARBITURATE SCREEN, URINE NEGATIVE (NEGATIVE); BENZODIAZEPINES SCREEN,URINE NEGATIVE (NEGATIVE); CANNABINOID SCREEN,URINE NEGATIVE (NEGATIVE); COCAINE SCREEN,URINE NEGATIVE (NEGATIVE); METHADONE SCREEN, URINE NEGATIVE (NEGATIVE); OPIATE SCREEN,URINE NEGATIVE (NEGATIVE)
[2021-04-10] MEDS ORDERED: LORazepam 2 MG TABLET PO PRN (18:00)
[2021-04-10 18:06] LABS: PHENCYCLIDINE SCREEN,URINE NEGATIVE (NEGATIVE)
[2021-04-10 19:03] VITALS: BP 148/92
[2021-04-10] MEDS ORDERED: DOCUSATE SODIUM 100 MG CAPSULE PO PRN (21:00)
[2021-04-10] MEDS ORDERED: PETROLATUM,WHITE 28 GM JELLY TP PRN (21:00)
[2021-04-10] MEDS ORDERED: BACITRACIN 28 GM OINTMENT TP PRN (21:00)
[2021-04-10] MEDS ORDERED: IBUPROFEN 600 MG TABLET PO PRN (21:00)
[2021-04-10] MEDS ORDERED: MAGNESIUM HYDROXIDE SUSPENSION 30 ML UDCUP PO PRN (21:00)
[2021-04-10] MEDS ORDERED: CloNIDine HCL 0.1 MG TABLET PO PRN (21:00)
[2021-04-10] MEDS ORDERED: OMEPRAZOLE 20 MG CAPSULE PO PRN (21:00)
[2021-04-10] MEDS ORDERED: MAG HYDROX/AL HYDROX/SIMETH ES 30 ML SUSPENSION UDCUP PO PRN (21:00)
[2021-04-10] MEDS ORDERED: ACETAMINOPHEN 325 MG TABLET PO PRN (21:00)
[2021-04-10] MEDS ORDERED: ONDANSETRON HCL 4 MG TABLET PO PRN (21:00)
[2021-04-10] MEDS ORDERED: LOPERAMIDE HCL 2 MG CAPSULE PO PRN (21:00)
[2021-04-10] MEDS ORDERED: BENZOCAINE/MENTHOL LOZENGE PO PRN (21:00)
[2021-04-10] MEDS ORDERED: ALBUTEROL SULFATE HFA 90 MCG/PUFF 8 GM INHALER IH PRN (21:00)
[2021-04-11] MEDS ORDERED: INFLUENZA VIRUS VACCINE QVS 2021-22 (6MO+)/PF 60 MCG/0.5 ML SYRINGE IM. ONE (05:00)
[2021-04-11 08:22] VITALS: BP 116/72
[2021-04-11] MEDS: HALOPERIDOL 5 MG TABLET PO PRN (11:03)
[2021-04-11 16:24] VITALS: BP 107/78
[2021-04-12 00:17] VITALS: BP 111/68
[2021-04-12] MEDS: HALOPERIDOL 5 MG TABLET PO PRN (11:36)
[2021-04-12] MEDS ORDERED: DiphenhydrAMINE HCL 50 MG/ML VIAL ONE (15:36)
[2021-04-12] MEDS ORDERED: DiphenhydrAMINE HCL 50 MG/ML VIAL IM ONE (16:00)
[2021-04-12 16:06] VITALS: BP 110/71
[2021-04-12] MEDS: LORazepam 2 MG TABLET PO PRN (21:44)
[2021-04-13 04:29] VITALS: BP 114/72
[2021-04-13 16:03] VITALS: BP 113/77
[2021-04-13] MEDS: LORazepam 2 MG TABLET PO PRN (20:28)
[2021-04-14 08:08] VITALS: BP 119/77
== END 2021-04-14 14:56 | disposition home or self-care (01) | DRG 750 ==
LOC: EMS 08:55 → B3A 16:44
PROVIDERS: ADMIT Psychiatry & Neurology Psychiatry; ATTEND Psychiatry & Neurology Psychiatry
DX: F25.9 Schizoaffective disorder, unspecified (principal); R45.851 Suicidal ideations; F31.9 Bipolar disorder, unspecified; F41.9 Anxiety disorder, unspecified; G47.00 Insomnia, unspecified; I10 Essential (primary) hypertension; K59.00 Constipation, unspecified; F10.10 Alcohol abuse, uncomplicated; E66.9 Obesity, unspecified; F15.10 Other stimulant abuse, uncomplicated; Z20.822 Contact with and (suspected) exposure to COVID-19; Z79.899 Other long term (current) drug therapy; Z95.0 Presence of cardiac pacemaker; Z68.34 Body mass index [BMI] 34.0-34.9, adult
CPT/HCPCS: 80053; 80061; 83690; 85025; 99285; G0480; J1200

== ENCOUNTER 2024-01-19 14:50 | Emergency (ER) | payer MEDICAID, OTHER ==
[~2024-01-19] VITALS: Ht 180.3 cm; Wt 81.8 kg
[2024-01-19] MEDS ORDERED: DIAZ10TA4 PO (14:54)
[2024-01-19] MEDS ORDERED: PROP20TA18 PO (14:54)
[2024-01-19] MEDS ORDERED: BUPR1TAB45 SL ×2 (14:54)
[2024-01-19 14:55] VITALS: TEMP 97.9
[2024-01-19 15:21] VITALS: BP 125/82; PULSE 70; RESP 18
== END 2024-01-19 17:06 | disposition left against medical advice (07) ==
LOC: EMS 14:50
DX: F20.9 Schizophrenia, unspecified (principal); Z76.0 Encounter for issue of repeat prescription; F15.10 Other stimulant abuse, uncomplicated; Z88.2 Allergy status to sulfonamides
CPT/HCPCS: 99281; Z7502

== ENCOUNTER 2025-05-21 21:03 | Inpatient (IN) | payer MEDICAID, OTHER ==
[~2025-05-21] VITALS: Ht 193 cm; Wt 104.3 kg
[~2025-05-21 21:03] MED LIST changes: -ACAM333T7 PO; +BUPR1TAB45 SL; -CHLO50TA53 PO; +DIAZ10TA4 PO; -DULO20CA27 PO; -GABA-1201 PO; +PROP20TA18 PO; -TRAZ-257 PO
[2025-05-21 23:26] LABS: PLATELET COUNT (AUTO) 214 K/uL (150-450); RED BLOOD CELL COUNT(AUTO) 4.56 MIL/uL (4.50-5.90); RED CELL DISTRIBUTION WIDTH 15.2 % (11.5-14.5); WHITE BLOOD COUNT (AUTO) 4.6 K/uL (4.5-11.0)
[2025-05-21 23:33] LABS: CALCIUM, TOTAL 9.1 mg/dL (8.8-10.5); CREATININE 0.96 mg/dL (0.60-1.30); GLOMERULAR FILTR. RATE CALC > 60 mL/min (>60); GLUCOSE,RANDOM 103 mg/dL (70-110); SODIUM SERUM 143 mmol/L (136-145); UREA NITROGEN, BLOOD 13 mg/dL (7-18)
[2025-05-21 23:37] LABS: ASPARTATE AMINOTRANSFERASE 17 U/L (15-37); TOTAL PROTEIN, SERUM 7.3 g/dL (6.4-8.2)
[2025-05-21 23:40] LABS: ALCOHOL, BLOOD (SERUM) < 3 mg/dL (0-10)
[2025-05-22 01:00] LABS: LACTIC ACID 0.5 mmol/L (0.4-2.0)
[2025-05-22 03:09] VITALS: O2SAT 96
[2025-05-22 03:23] LABS: COVID AG,FIA SOURCE NASAL SWAB
[2025-05-22 03:44] LABS: SARS-COV2 (COVID) ANTIGEN,FIA Negative (Negative)
[2025-05-22] MEDS ORDERED: ZOLPIDEM TARTRATE 10 MG TABLET PO PRN (05:45)
[2025-05-22 08:07] VITALS: BP 94/79; PULSE 75; RESP 16; TEMP 97.5; O2SAT 95
[2025-05-22] MEDS ORDERED: PETROLATUM,WHITE 28 GM JELLY TP PRN (09:15)
[2025-05-22] MEDS ORDERED: BACITRACIN 28 GM OINTMENT TP PRN (09:15)
[2025-05-22] MEDS ORDERED: MAG HYDROX/ALUMINUM HYD/SIMETH ES 30 ML SUSPENSION UDCUP PO PRN (09:15)
[2025-05-22] MEDS ORDERED: OMEPRAZOLE 20 MG CAPSULE PO PRN (09:15)
[2025-05-22] MEDS ORDERED: ONDANSETRON 4 MG TABLET PO PRN (09:15)
[2025-05-22] MEDS ORDERED: IBUPROFEN 600 MG TABLET PO PRN (09:15)
[2025-05-22] MEDS ORDERED: DOCUSATE SODIUM 100 MG CAPSULE PO PRN (09:15)
[2025-05-22] MEDS ORDERED: ALBUTEROL SULFATE HFA 90 MCG/PUFF 8 GM INHALER IH PRN (09:15)
[2025-05-22] MEDS ORDERED: LOPERAMIDE HCL 2 MG CAPSULE PO PRN (09:15)
[2025-05-22] MEDS ORDERED: ACETAMINOPHEN 325 MG TABLET PO PRN (09:15)
[2025-05-22] MEDS: THIAMINE 100 MG TABLET PO SCH (09:44)
[2025-05-22] MEDS: BUPRENORPHINE HCL/NALOXONE HCL 8-2 MG SUBLINGUAL TABLET SL SCH (09:44)
[2025-05-22] MEDS: FAMOTIDINE 20 MG TABLET PO SCH (09:45)
[2025-05-22 09:56] VITALS: BP 119/72; PULSE 65; RESP 18; TEMP 98; O2SAT 100
[2025-05-22] MEDS ORDERED: INFLUENZA VIRUS VACCINE TVS (6MO+) 2025-26/PF 45 MCG/0.5 ML SYRINGE IM. ONE (12:15)
[2025-05-22] MEDS: GABAPENTIN 300 MG CAPSULE PO SCH (12:28)
[2025-05-22] MEDS: PROPRANOLOL HCL 20 MG TABLET PO SCH (12:49)
[2025-05-22] MEDS ORDERED: PROPRANOLOL HCL 40 MG TABLET PO SCH (13:00)
[2025-05-22 20:07] VITALS: BP 118/78; PULSE 81; RESP 18; TEMP 97.7
[2025-05-23 04:31] LABS: GLUCOMETER DEV NAME(LOC) BV3N.2; GLUCOSE,POINT OF CARE 116 MG/DL (70-110)
[2025-05-23 08:06] VITALS: BP 132/89; PULSE 99; RESP 17; TEMP 97.7; O2SAT 97
[2025-05-23 08:31] LABS: PLATELET COUNT (AUTO) 212 K/uL (150-450); RED BLOOD CELL COUNT(AUTO) 4.61 MIL/uL (4.50-5.90); RED CELL DISTRIBUTION WIDTH 15.0 % (11.5-14.5); WHITE BLOOD COUNT (AUTO) 4.8 K/uL (4.5-11.0)
[2025-05-23 08:55] LABS: CALCIUM, TOTAL 8.8 mg/dL (8.8-10.5); CREATININE 0.79 mg/dL (0.60-1.30); GLOMERULAR FILTR. RATE CALC > 60 mL/min (>60); GLUCOSE,RANDOM 85 mg/dL (70-110); SODIUM SERUM 141 mmol/L (136-145); UREA NITROGEN, BLOOD 14 mg/dL (7-18)
[2025-05-23 09:07] LABS: ASPARTATE AMINOTRANSFERASE 13 U/L (15-37); CHOL/HDL RATIO 2.7 (4.2-7.3); LDL CHOL (CALC.) 97 mg/dL (0-130); PHOSPHORUS 3.9 mg/dL (2.5-4.9); TOTAL PROTEIN, SERUM 7.1 g/dL (6.4-8.2)
[2025-05-23] MEDS: MAGNESIUM HYDROXIDE SUSPENSION 30 ML UDCUP PO PRN (09:33)
[2025-05-23 12:25] VITALS: BP 121/89; PULSE 68; RESP 17; TEMP 98.2; O2SAT 98
[2025-05-23] MEDS: DOCUSATE SODIUM 100 MG CAPSULE PO SCH (16:45)
[2025-05-23 16:55] VITALS: BP 137/97; PULSE 69; RESP 17; O2SAT 98
[2025-05-23 20:28] VITALS: BP 132/80; PULSE 65; RESP 17; TEMP 98.6; O2SAT 98
[2025-05-23] MEDS: OLANZapine 7.5 MG TABLET PO SCH (21:33)
[2025-05-24 08:05] VITALS: BP 110/73; PULSE 91; RESP 15; TEMP 98.2; O2SAT 97
[2025-05-24 20:36] VITALS: BP 120/83; PULSE 62; RESP 18; TEMP 98.4; O2SAT 96
[2025-05-25 08:26] VITALS: BP 115/75; PULSE 67; RESP 17; TEMP 97.2; O2SAT 93
[2025-05-25 12:45] VITALS: BP 128/78; PULSE 69; RESP 18; TEMP 98.2; O2SAT 95
[2025-05-25 16:20] VITALS: BP 118/69; PULSE 74; RESP 18; TEMP 98.1; O2SAT 96
[2025-05-25] MEDS ORDERED: GuaiFENesin [SUGAR-FREE] 200 MG/10 ML SOLUTION UDCUP PO PRN (18:00)
[2025-05-25] MEDS: BENZOCAINE/MENTHOL [CEPACOL] LOZENGE PO PRN (18:00)
[2025-05-25 20:19] VITALS: BP 137/79; PULSE 88; RESP 20; TEMP 97.2; O2SAT 96
[2025-05-26 08:19] VITALS: RESP 17
[2025-05-26 08:38] VITALS: BP 110/60; PULSE 86; RESP 17; TEMP 97.3; O2SAT 96
[2025-05-26 20:24] VITALS: BP 100/70; PULSE 86; RESP 18; TEMP 96.6; O2SAT 97
[2025-05-27 09:37] VITALS: BP 111/78; PULSE 66; RESP 17; TEMP 98.5; O2SAT 98
[2025-05-27 12:10] VITALS: BP 115/83; PULSE 98; RESP 18; TEMP 98.3; O2SAT 99
[2025-05-27 15:53] VITALS: BP 126/78; PULSE 84; RESP 18; O2SAT 97
[2025-05-27 20:16] VITALS: BP 96/66; PULSE 67; RESP 18; TEMP 97.9; O2SAT 98
[2025-05-28 08:11] VITALS: BP 123/82; PULSE 84; RESP 19; TEMP 97.9; O2SAT 97
[2025-05-28 12:20] VITALS: BP 113/81; PULSE 82; RESP 18; TEMP 98.2; O2SAT 98
[2025-05-28] MEDS: MIDODRINE HCL 5 MG TABLET PO ONE (15:18)
[2025-05-28 20:05] VITALS: BP 117/69; PULSE 66; RESP 18; TEMP 98.4; O2SAT 95
[2025-05-29 08:19] VITALS: BP 110/95; PULSE 75; RESP 18; TEMP 98.6; O2SAT 100
[2025-05-29 20:13] VITALS: BP 104/70; PULSE 77; RESP 18; TEMP 97.3; O2SAT 97
[2025-05-30 08:33] VITALS: BP 107/78; PULSE 66; RESP 17; TEMP 97.7; O2SAT 98
[2025-05-30 08:36] VITALS: RESP 16
[2025-05-30 09:36] VITALS: RESP 18
[2025-05-30] MEDS ORDERED: OLAN5TAB52 PO (11:31)
[2025-05-30] MEDS ORDERED: OLAN7.5T22 PO (11:31)
[2025-05-30] MEDS ORDERED: PROP40TA7 PO (11:36)
[2025-05-30] MEDS ORDERED: DOCU-385 PO (11:36)
[2025-05-30] MEDS ORDERED: THIA100V4 IM (11:37)
[2025-05-30] MEDS ORDERED: GABA-1181 PO (11:37)
[2025-05-30] MEDS ORDERED: FAMO20 PO (11:38)
[2025-05-30 12:46] VITALS: RESP 18
[2025-05-30 13:46] VITALS: RESP 18
== END 2025-05-30 16:54 | disposition home or self-care (01) | DRG 761 ==
LOC: EMS 21:03 → B3A 05-22 05:38
PROVIDERS: ADMIT Psychiatry & Neurology Psychiatry; ATTEND Psychiatry & Neurology Psychiatry
DX: F25.9 Schizoaffective disorder, unspecified (principal); Z59.00 Homelessness unspecified; E11.9 Type 2 diabetes mellitus without complications; F11.20 Opioid dependence, uncomplicated; I10 Essential (primary) hypertension; F31.9 Bipolar disorder, unspecified; F15.10 Other stimulant abuse, uncomplicated; F41.9 Anxiety disorder, unspecified; G47.00 Insomnia, unspecified; K59.00 Constipation, unspecified; T50.902A Poisoning by unspecified drugs, medicaments and biological substances, intentional self-harm, initial encounter; Z95.0 Presence of cardiac pacemaker; Y92.89 Other specified places as the place of occurrence of the external cause; Z88.2 Allergy status to sulfonamides; Z88.8 Allergy status to other drugs, medicaments and biological substances; Z79.899 Other long term (current) drug therapy
CPT/HCPCS: 80048; 80053; 80061; 80076; 82962; 83036; 83605; 83735; 84100; 84443; 85025; 99285; G0480; G0481